=== PATIENT | female | born 1945 | race Caucasian/White ===

== ENCOUNTER → 2017-08-18 | Outpatient (CLI) | payer OTHER | LOC: FIMAGING 14:55 | PROVIDERS: ATTEND Internal Medicine | DX: Z12.31 Encounter for screening mammogram for malignant neoplasm of breast (principal); Z85.3 Personal history of malignant neoplasm of breast ==

== ENCOUNTER → 2017-08-26 | Outpatient (CLI) | payer OTHER | LOC: FIMAGING 11:49 | PROVIDERS: ATTEND Internal Medicine | DX: R92.2 Inconclusive mammogram (principal) ==

== ENCOUNTER → 2017-11-26 | Outpatient (CLI) | payer OTHER ==
[~2017-11-26] MED LIST: LIDOCAINE 1% 300 MG/30 ML SDV ONE
== END ==
LOC: FIMAGING 11:33
PROVIDERS: ATTEND Internal Medicine
PROC: 0G9G3ZX Drainage of Left Thyroid Gland Lobe, Percutaneous Approach, Diagnostic (ICD-10-PCS; principal; 2017-11-26)
DX: E04.2 Nontoxic multinodular goiter (principal); D34 Benign neoplasm of thyroid gland

== ENCOUNTER 2018-05-07 22:24 | Observation (INO) | payer OTHER ==
[2018-05-07] MEDS ORDERED: ONDANSETRON 4 MG/2 ML VIAL ONE (22:38)
[2018-05-07] MEDS ORDERED: KETOROLAC 15 MG/1 ML SDV ONE (22:38)
[2018-05-07] MEDS ORDERED: ONDANSETRON 4 MG/2 ML VIAL IVP ONE (22:38)
[2018-05-07] MEDS ORDERED: NS 1,000 ML IV ONE (22:38)
[2018-05-07] MEDS ORDERED: KETOROLAC 15 MG/1 ML SDV IVP ONE (22:38)
--- NOTE | 2018-05-07 22:41 | EDPHY ---
H & P Stated Complaint: left flank pain, hx Time Seen by Provider: 05/07/18 22:32 HPI/ROS: Chief Complaint: Flank pain HPI: 72-year-old woman with a history of kidney stones presenting with left flank pain which began earlier this evening. She has had blood in urine for the last 2 days. Pain is about an 8/10. Feels similar to her prior kidney stones. No fevers or chills. Some nausea and vomiting. The pain is not radiating. No urinary urgency or frequency. She cannot find a position of comfort. ROS: 10 systems were reviewed and were negative except those elements noted in the HPI. PMH: Kidney stones, UTI Social History: No smoking, no alcohol, no recreational drug use Family History: non-contributory Physical Exam: Gen: Awake, Alert, uncomfortable appearing HEENT: Nose: no rhinorrhea Eyes: PERRLA, EOMI Mouth: Moist mucosa Neck: Supple, no JVD Chest: nontender, lungs clear to auscultation Heart: S1, S2 normal, no murmur Abd: Soft, non-tender, no guarding Back: no CVA tenderness, no midline tenderness Ext: no edema, non-tender Skin: no rash Neuro: CN II-XII intact, Sensation grossly intact, Strength 5/5 in bilateral upper and lower extremities - Personal History Current Tetanus/Diphtheria Vaccine: Unsure Current Tetanus Diphtheria and Acellular Pertussis (TDAP): Unsure - Medical/Surgical History Hx Asthma: No Hx Chronic Respiratory Disease: No Hx Diabetes: No Hx Cardiac Disease: Yes Hx Renal Disease: No Hx Cirrhosis: No Hx Alcoholism: No Hx HIV/AIDS: No Hx Splenectomy or Spleen Trauma: No Other PMH: MEDICAL- KIDNEY STONES, HLD, BREAST CA. SURGICAL- L BREAST LUMPECTOMY, R and LHIP RPLC, back surgery - Social History Smoking Status: Former smoker Constitutional: Initial Vital Signs Temperature (C) 37 C 05/07/18 22:28 Heart Rate 76 05/07/18 22:28 Respiratory Rate 18 05/07/18 22:28 O2 Sat (%) 93 05/07/18 22:28 O2 Delivery Mode Room Air Allergies/Adverse Reactions: oxycodone Allergy (Severe, Verified 10/20/15 15:50) SORES ON SKIN tramadol Allergy (Severe, Verified 10/20/15 15:50) SORES ON SKIN Home Medications: Medication Instructions Recorded Meloxicam [Mobic 15 mg] 15 mg PO HS 03/19/12 Multivitamins [Multivitamin (OTC)] 1 each PO HS 03/19/12 traZODone [traZODONE 50MG (RX)] 50 mg PO HS 03/19/12 Atorvastatin Calcium [Lipitor] 20 mg PO HS 10/20/15 Losartan Potassium [Cozaar] 100 mg PO HS 10/20/15 Oxybutynin Chloride [Ditropan Xl] 10 mg PO HS 10/20/15 Ascorbic Acid [C-1000] 1,000 mg PO HS 10/27/15 Cholecalciferol Vit D3 [Vitamin D] 2,000 units PO HS 10/27/15 Herbals/Supplements -Info Only 1 ea PO DAILY 10/27/15 Cephalexin [Keflex (*)] 500 mg PO Q6H #40 cap 02/16/18 Medical Decision Making - Diagnostics Imaging Results: Imaging Impressions Abdomen/Pelvis CT 05/07/18 22:38 Impression: 1. 6 x 4 mm calculus at the left ureteral pelvic junction is resulting in mild left hydronephrosis. 2. Left nephrolithiasis and parapelvic cysts unchanged. 3. Constipation and sigmoid diverticulosis unchanged. Findings discussed with Emergency Department physician, Zay Han MD at 05/07/2018 23:07. Attention: This CT examination is specifically designed to evaluate patients who are clinically suspected of having acute obstructive uropathy. This examination does not use radiographic contrast, and as such, provides only a limited evaluation of the abdomen, pelvis and retroperitoneum. If there is further clinical suspicion for pathological conditions other than obstructive uropathy, a complete CT evaluation of the abdomen and pelvis utilizing intravenous, oral, and rectal contrast should be considered. ED Course/Re-evaluation: CT scan is positive for a 6 x 4 mm right renal pelvis stone with mild hydro. Patient's pain is significantly improved after IV Toradol. She is comfortable. She has passed a p.o. Challenge. Urinalysis is consistent with urinary tract infection. I have discussed with Dr. Patricia, urology. She is requesting the patient be admitted to the medicine service. She will plan on placing ureteral stent in the morning. I have ordered 1g of ceftriaxone. Case discussed with LISBET Hoffman for Dr Doll, hospitalist. He will admit to their service for further care. - Data Points Laboratory Results: Laboratory Results 05/07/18 22:40 05/07/18 22:40 05/07/18 05/07/18 05/07/18 23:59 22:40 22:40 WBC 10.92 10^3/uL H 10^3/uL (3.80-9.50) RBC 3.99 10^6/uL L 10^6/uL (4.18-5.33) Hgb 12.7 g/dL g/dL (12.6-16.3) Hct 36.2 % L % (38.0-47.0) MCV 90.7 fL fL (81.5-99.8) MCH 31.8 pg pg (27.9-34.1) MCHC 35.1 g/dL g/dL (32.4-36.7) RDW 13.5 % % (11.5-15.2) Plt Count 192 10^3/uL 10^3/uL (150-400) MPV 11.8 fL H fL (8.7-11.7) Neut % (Auto) 80.0 % H % (39.3-74.2) Lymph % (Auto) 12.7 % L % (15.0-45.0) [place] % (Auto) 4.9 % % (4.5-13.0) Eos % (Auto) 1.3 % % (0.6-7.6) Baso % (Auto) 0.4 % % (0.3-1.7) Nucleat RBC Rel Count 0.0 % % (0.0-0.2) Absolute Neuts (auto) 8.74 10^3/uL H 10^3/uL (1.70-6.50) Absolute Lymphs (auto) 1.39 10^3/uL 10^3/uL (1.00-3.00) Absolute Monos (auto) 0.53 10^3/uL 10^3/uL (0.30-0.80) Absolute Eos (auto) 0.14 10^3/uL 10^3/uL (0.03-0.40) Absolute Basos (auto) 0.04 10^3/uL 10^3/uL (0.02-0.10) Absolute Nucleated RBC 0.00 10^3/uL 10^3/uL (0-0.01) Immature Gran % 0.7 % % (0.0-1.1) Immature Gran # 0.08 10^3/uL 10^3/uL (0.00-0.10) Sodium 138 mEq/L mEq/L (135-145) Potassium 4.4 mEq/L mEq/L (3.3-5.0) Chloride 107 mEq/L mEq/L (97-110) Carbon Dioxide 21 mEq/l L mEq/l (22-31) Anion Gap 10 mEq/L mEq/L (8-16) BUN 20 mg/dL mg/dL (7-23) Creatinine 1.0 mg/dL mg/dL (0.6-1.0) Estimated GFR 55 Glucose 135 mg/dL H mg/dL (70-100) Calcium 9.7 mg/dL mg/dL (8.5-10.4) Urine Color YELLOW Urine Appearance HAZY Urine pH 5.0 (5.0-7.5) Ur Specific Hewitt 1.023 (1.002-1.030) Urine Protein 1+ H (NEGATIVE) Urine Ketones NEGATIVE (NEGATIVE) Urine Blood 3+ H (NEGATIVE) Urine Nitrate NEGATIVE (NEGATIVE) Urine Bilirubin NEGATIVE (NEGATIVE) Urine Urobilinogen 2.0 EU H EU (0.2-1.0) Ur Leukocyte Esterase 2+ H (NEGATIVE) Urine RBC 50-182 /hpf H /hpf (0-3) Urine WBC 50-182 /hpf H /hpf (0-3) Ur Epithelial Cells TRACE /lpf /lpf (NONE-1+) Calcium Oxalate Crystal PRESENT /hpf /hpf (NONE-1+) Urine Mucus 1+ /lpf /lpf (NONE-1+) Urine Glucose NEGATIVE (NEGATIVE) Medications Given: Discontinued Medications Sodium Chloride (Ns) 1,000 mls @ 0 mls/hr IV ONCE ONE; Wide Open PRN Reason: Protocol Stop: 05/07/18 22:39 Last Admin: 05/07/18 22:41 Dose: 1,000 mls Ceftriaxone Sodium/Dextrose (Rocephin 1 Gm (Premix)) 50 mls @ 100 mls/hr IV EDNOW ONE PRN Reason: Protocol Stop: 05/08/18 00:54 Last Admin: 10/05/18 00:31 Dose: 50 mls Ketorolac Tromethamine (Toradol) 15 mg IVP EDNOW ONE Stop: 05/07/18 22:39 Last Admin: 05/07/18 22:42 Dose: 15 mg Ondansetron HCl (Zofran) 4 mg IVP EDNOW ONE Stop: 05/07/18 22:39 Last Admin: 05/07/18 22:41 Dose: 4 mg Departure - Departure Disposition: [facility] Acute Clinical Impression: Kidney stone, Urinary tract infection Condition: Fair
[2018-05-07 22:52] LABS: PLATELET COUNT 192 10^3/uL (150-400)
[2018-05-08] MEDS ORDERED: ACETAMINOPHEN 325 MG TAB PO PRN (00:46)
[2018-05-08] MEDS ORDERED: ONDANSETRON DISINTEGRATING 4 MG TAB PO PRN ×2 (00:46→01:45)
[2018-05-08] MEDS ORDERED: ONDANSETRON 4 MG/2 ML VIAL IVP PRN ×2 (00:46→01:45)
[2018-05-08] MEDS ORDERED: NS W/ 20 KCl/L 1,000 ML IV SCH (01:00)
[2018-05-08] MEDS ORDERED: HYDROmorphONE/DILAUDID 1 MG/ML INJ IVP PRN (01:45)
[2018-05-08] MEDS ORDERED: diphenhydrAMINE 25 MG CAP PO PRN (01:45)
[2018-05-08] MEDS ORDERED: LORazepam 0.5 MG TAB PO PRN (01:45)
--- NOTE | 2018-05-08 03:46 | GHP ---
DATE OF ADMISSION: 05/08/2018 REASON FOR ADMISSION: Left hydronephrosis, kidney stone, urinary tract infection. HISTORY OF PRESENT ILLNESS: The patient is a 72-year-old female, who started having abdominal pain a fter the [employer] game this evening. She has a history of kidney stone and felt she was having simila r type pain. She admits she has had some blood in her urine for the past 2 days. No fever, chills, or gross flank pain. No gross significant dysuria. She has had multiple ER visits and prior procedu res for kidney stones. She estimates this has occurred approximately 6 times in the past. She sound s like she has had previous ureteroscopy perhaps 5 years ago. She has otherwise been doing well. ALLERGIES: Listed oxycodone and tramadol. Medication in office list includes codeine, however, she took some Tylenol with codeine at home without difficulty earlier this evening. CURRENT MEDICATIONS: Desonide 0.05% cream p.r.n. rash, losartan 100 mg at bedtime, trazodone 50 mg a t bedtime, atorvastatin 20 mg HS, meloxicam 15 mg p.o. p.r.n. pain, oxybutynin ER 15 mg daily, fish o il. PAST SURGICAL HISTORY: Ureteroscopy, breast cancer surgery, spinal fusion, hip replacement. SOCIAL HISTORY: Nonsmoker, nondrinker. Generally active. Lives independently. FAMILY HISTORY: Father at 47 from heart attack. The patient hypothesized this was triggered fr om pain from kidney stone. Mother at 86 from pneumonia. Siblings: 1 brother with heart diseas e, COPD, peripheral artery disease. REVIEW OF SYSTEMS: GENERAL: Patient denies fever, chills, or gross sense of illness. She denies he adaches or visual changes. No shortness breath, cough, wheeze or congestion. No chest pain or palpi tations. She states she sometimes gets nausea with kidney stones. This has been well treated with o ndansetron in the ER setting. Her last meal was approximately noon. No changes in bowel habits. No gross dysuria, but admitted blood in her urine for the past 2 days. No acute musculoskeletal compla ints. No edema. No new rash. PHYSICAL EXAM: VITAL SIGNS: Blood pressure 161/79, heart rate 82, respiratory rate 16, saturation 9 2% room air, temperature 37. GENERAL: Pleasant, vibrant female sitting comfortably in bed at time o f interview. HEENT: Pupils are symmetric. Oropharynx is somewhat dry. NECK: Without masses. [place] GS: No crackles, wheeze or congestion, dry cough. HEART: Regular rate and rhythm. Distant heart s ounds. No murmur. ABDOMEN: Positive bowel sounds. Soft. Some left upper quadrant tenderness or i rritation with palpation is noted. No gross masses are appreciated. No CVA tenderness. exam is otherwise deferred. SKIN: Warm, dry, intact. Joints without acute erythema or swelling. Periphera l pulses at radial and DP pulses are intact and symmetric. DATABASE: White count minimally elevated at 10.92, hemoglobin 12.7, platelet count normal 192. [place] bolic panel noted for mild elevation of glucose at 135. Creatinine 1.0. Urine positive for blood, l eukocyte esterase, red blood cells and white blood cells. CT left mild hydronephrosis, proximal ston e likely as cause of symptoms. Bladder is decompressed. There is some evidence of constipation. ASSESSMENT AND PLAN: 1. Left hydronephrosis stone with urinary tract infection. Dr. Pelaez has been notified of the kimani zapien. She will be held n.p.o., was given IV fluids. Anticipate ureteroscopy with stone removal and stent placement tomorrow. She has been given ceftriaxone for antibiotic coverage in the ER. This w ill be continued once daily. 2. Hypertension. We will give her the typical 100 mg dose of losartan now. 3. Hyperlipidemia. Give Lipitor 20 mg daily tonight as usual. 4. Insomnia. Continue trazodone. /[id number]/MODL
[2018-05-08] MEDS ORDERED: LR 1,000 ML IV ONE (07:32)
[2018-05-08] MEDS ORDERED: IOPAMIDOL (ISOVUE-M 300) 15 ML VIAL ONE (07:39)
[2018-05-08] MEDS ORDERED: LIDOCAINE 2% JELLY 20 ML (UROJECT) ONE (07:39)
[2018-05-08] MEDS ORDERED: levOFLOXACIN 500 MG/DEXTROSE 100 ML IV ONE (07:53)
--- NOTE | 2018-05-08 07:54 | POSTANESTH ---
Post Anesthetic Evaluation Cardiovascular Status: Normal, Stable Respiratory Status: Normal, Stable Level of Consciousness/Mental Status: Can Participate in Eval, Mildly Sleepy, Arousable Pain Control: Adequate, Prn Tx Ordered Nausea/Vomiting Control: Adequate, Prn Tx Ordered Complications Possibly Related to Anesthesia: None Noted
[2018-05-08] MEDS ORDERED: levOFLOXACIN 500 MG/DEXTROSE/100 ML BAG IV ONE (07:55)
--- NOTE | 2018-05-08 07:56 | PDANEPAE ---
ANE History of Present Illness 72 yo female with L sided nephrolithiasis and hydronephrosis ANE Past Medical History - Cardiovascular History Hx Hypertension: Yes Hx Arrhythmias: No Hx Chest Pain: No Hx Coronary Artery / Peripheral Vascular Disease: No Hx CHF / Valvular Disease: No Hx Palpitations: No Cardiovascular History Comment: HLD - Pulmonary History Hx COPD: No Hx Asthma/Reactive Airway Disease: No Hx Recent Upper Respiratory Infection: No Hx Oxygen in Use at Home: No Hx Sleep Apnea: No Sleep Apnea Screening Result - Last Documented: Positive Pulmonary History Comment: SUSPECTED COLLEEN - Neurologic History Hx Cerebrovascular Accident: No Hx Seizures: No Hx Dementia: No - Endocrine History Hx Diabetes: No Hypothyroid: No Hyperthyroid: No Obesity: moderate - Renal History Hx Renal Disorders: Yes Renal History Comment: NEPHROLITHIASIS. HYDRONEPHROSIS. URINARY INCONTINENCE - Liver History Hx Hepatic Disorders: No - Neurological & Psychiatric Hx Hx Neurological and Psychiatric Disorders: No - Cancer History Hx Cancer: Yes Cancer History Comment: LEFT BREAST DCIS 1996 - maybe a sentinel LN biopsy, no post-chemo - Congenital Disorder History Hx Congenital Disorders: No - GI History Hx Gastrointestinal Disorders: No Gastrointestinal History Comment: BENIGN COLONOSCOPIES - Other Health History Other Health History: OSTEOPENIA. SPINAL STENOSIS S/P FUSION - Chronic Pain History Chronic Pain: Yes - Surgical History Prior Surgeries: LEFT BREAST LUMPECTOMY 1996. R HIP ALFREDITO 2003, HARDWARE. L CARPAL TUNNEL @ [facility]. L4-L5, L5-S1 FUSION 2015 @ [facility] Review of Systems Review of Systems: - Systems Genitourinary: Reports: flank pain, hematuria Muscolosketal: Reports: joint pain ANE Patient History - Allergies Allergies/Adverse Reactions: oxycodone Allergy (Severe, Verified 10/20/15 15:50) SORES ON SKIN tramadol Allergy (Severe, Verified 10/20/15 15:50) SORES ON SKIN - Home Medications Home Medications: Meloxicam [Mobic 15 mg] 15 mg PO HS 03/19/12 [Last Taken 03/17/12] Multivitamins [Multivitamin (OTC)] 1 each PO HS 03/19/12 [Last Taken 03/16/12] traZODone [traZODONE 50MG (RX)] 50 mg PO HS 03/19/12 [Last Taken 03/17/12] Atorvastatin Calcium [Lipitor] 20 mg PO HS 10/20/15 [Last Taken Unknown] Losartan Potassium [Cozaar] 100 mg PO HS 10/20/15 [Last Taken Unknown] Oxybutynin Chloride [Ditropan Xl] 10 mg PO HS 10/20/15 [Last Taken Unknown] Ascorbic Acid [C-1000] 1,000 mg PO HS 10/27/15 [Last Taken Unknown] Cholecalciferol Vit D3 [Vitamin D] 2,000 units PO HS 10/27/15 [Last Taken Unknown] Herbals/Supplements -Info Only 1 ea PO DAILY 10/27/15 [Last Taken Unknown] - NPO status NPO Since - Liquids (Date): 05/07/18 NPO Since - Liquids (Time): 12:00 NPO Since - Solids (Date): 05/07/18 NPO Since - Solids (Time): 12:00 - Anes Hx Anes Hx: post operative nausea and vomiting - Smoking Hx Smoking Status: Former smoker Marijuana use: No - Alcohol Use Alcohol Use: None - Family Anes Hx Family Anes Hx: neg - N/A Family Hx Anesthesia Complications: NO ANE Labs/Vital Signs - Labs Result Diagrams: 05/07/18 22:40 05/07/18 22:40 - Vital Signs Blood Pressure: 164/81 Heart Rate: 67 Respiratory Rate: 18 O2 Sat (%): 94 Height: 160.02 cm Weight: 102.3 kg ANE Physical Exam - Airway Neck exam: decreased ROM Mallampati Score: Class 3 Mouth exam: normal dental/mouth exam - Pulmonary Pulmonary: clear to auscultation - Cardiovascular Cardiovascular: regular rate and rhythym - ASA Status ASA Status: III ANE Anesthesia Plan Anesthesia Plan: GA w LMA
--- NOTE | 2018-05-08 08:06 | PDCONSULT ---
Change Agent Note: C left obs ureteral stone, UTI Requested by: Brooks Han MD ER HPI 72F w hx BrCa 20y ago, bilateral hip replacement, presented to ER w one day acute left flank pain, nausea, blood in urine for 2 days. No fevers or chills. Hx stones, passed on own, no surgery. No other medical issues. Rocephin last night. CT scan personally reviewed - left obs proxomal stone 6mm, 2 other nonobs left renal stones, largest renal stone 9mm. No R nephrolithiasis. ROS: 10 systems were reviewed and were negative except those elements noted in the HPI. PMH: Kidney stones, UTI Social History: No smoking, no alcohol, no recreational drug use Family History: non-contributory PE AFVSS Gen NAD A&O CV regular Lungs Normal effort Abd soft Ext warm Labs reviewed - WBC 10.9 Cr 1 UA - +leuks, +RBC, +WBC, +infection A/P Left obs ureteral stone, other non obs renal stones, UTI. Needs left stent 2/2 infection. Discussed rationale, risks, benefits of stent placement. She understands, questions answered, consent received. Will plan on definitive tx in 1-2 weeks. Will need her DC on appropriate abx and continue abx up through tx of surgery.
[2018-05-08] MEDS ORDERED: PROPOFOL/EMULSION 500 MG/50 ML BOTTLE IV ONE (08:10)
[2018-05-08] MEDS ORDERED: fentaNYL 100 MCG/2 ML INJ ONE (08:10)
[2018-05-08] MEDS ORDERED: DEXAMETHASONE 4 MG/ML VIAL ONE (08:10)
[2018-05-08] MEDS ORDERED: ONDANSETRON 4 MG/2 ML VIAL ONE (08:10)
[2018-05-08] MEDS ORDERED: PROMETHAZINE HCL 25 MG/ML INJ IVP PRN (08:46)
[2018-05-08] MEDS ORDERED: HYDROmorphONE/DILAUDID 2 MG/ML INJ IVP PRN (08:46)
[2018-05-08] MEDS ORDERED: ALBUTEROL 3 ML DEYVIAL IH PRN (08:46)
[2018-05-08] MEDS ORDERED: fentaNYL 100 MCG/2 ML INJ IVP PRN (08:46)
[2018-05-08] MEDS ORDERED: NALOXONE HCL 0.4 MG/ML INJ IVP PRN (08:46)
[2018-05-08] MEDS ORDERED: LR 500 ML IV PRN (08:46)
--- NOTE | 2018-05-08 08:54 | POSTOPPROG ---
Post Op Note Date of Operation: 05/08/18 Surgeon: Felipa Pelaez Anesthesia: LMA Pre-op Diagnosis: left obs nephrolithiasis, UTI Post-op Diagnosis: same Indication: left obs nephrolithiasis, UTI Procedure: cysto, L stent placement, intraoperative fluoro Findings: normal bladder Inf/Abcess present in the surg proc area at time of surgery?: Yes Depth: Organ Space () Complications: None,pt tolerated well
[2018-05-08] MEDS ORDERED: OXYBUTYNIN CHLORIDE 5 MG TAB PO PRN (08:55)
[2018-05-08] MEDS ORDERED: PHENAZOPYRIDINE HCL 200 MG TAB PO PRN (08:56)
[2018-05-08] MEDS ORDERED: TAMSULOSIN HCL 0.4 MG CAP PO SCH (09:00)
[2018-05-08] MEDS ORDERED: LOSARTAN POTASSIUM 50 MG TAB PO SCH (09:00)
[2018-05-08] MEDS ORDERED: SENNOSIDES/DOCUSATE SODIUM TAB PO SCH (09:00)
--- NOTE | 2018-05-08 09:41 | SOAPPROG ---
[facility]ICK[facility] Progress Note Assessment/Plan: Assessment: 72 yo female admitted last night w/ L hydro/UTI/6 mm obstructing stone, now s/p cysto/L ureteral stent w/ Dr Pelaez in PACU doing well, has 2 further stones in addition - will be treated w/ outpt lithotripsy for these in 10 days or so per pt's discussion w/ urology - -s/p stent doing really well, appreciate rapid assistance of urology - pt very pleased. Rec'd rocephin last night, will change to po abx per instructions of urology and will send in rx to [facility] for patient so her brother or neighbor can pick them up when she returns home. Possible d/c this afternoon vs tomorrow am - armando RN. Need to see her ambulating, voiding, taking po's and doing well this afternoon, if so, will d/c home. Otherwise will d/c tomorrow. Will have f/u with Dr Pelaez as outpt. Increased diet to light from NPO. -dispo see above Plan: 05/08/18 09:37 05/08/18 09:41 Subjective: Doing quite well s/p stent, is super pleased w/ help of Dr Pelaez Objective: Vital Signs Temp Pulse Resp BP Pulse Ox 36.4 C 67 21 H 138/94 H 94 05/08/18 09:30 05/08/18 07:56 05/08/18 09:25 05/08/18 09:15 05/08/18 09:25 05/07/18 05/08/18 05/09/18 05:59 05:59 05:59 Intake Total 350 Balance 350 GEN: pleasant female, quite alert despite being in PACU, oriented x 4 Heent: perr, eomi Neck: soft/supple Chest: cta b CV: rrr Abd: soft nt nd Ext: 2+ pedal pulses bilat Neuro: surprisingly alert s/p anesthesia, oriented appropriate Psych: bright affect - Pending Discharge Pending Discharge Within 24 Hours: Yes Pending Discharge Date: 05/09/18 Pending Discharge Time: 11:00 ICD10 Worksheet Patient Problems: Problems Problem Status Onset Kidney stone Acute Urinary tract infection Acute
--- NOTE | 2018-05-08 10:15 | ASMTCMCOM ---
JOHN Note CM Note Notes: Reviewed chart, pt admitted for pain from a kidney stone, she has a hx of this. If pt does well this afternoon, she can go home. Anticipate she will dc home w/support from her brother, CM available for any changes. DC Plan: Independent Date Signed: 05/08/2018 10:14 AM Electronically Signed By:Christal Rainey RN
[2018-05-08 10:33] LABS: PLATELET COUNT 147 10^3/uL (150-400)
--- NOTE | 2018-05-08 11:14 | GOP ---
DATE OF OPERATION: 05/08/2018 SURGEON: Felipa Pelaez MD ANESTHESIOLOGIST: Cassie Sim MD PREOPERATIVE DIAGNOSIS: Left obstructing ureteral stone and urinary tract infection. POSTOPERATIVE DIAGNOSIS: Left obstructing ureteral stone and urinary tract infection. PROCEDURE PERFORMED: Cystoscopy, left ureteral stent placement, intraoperative fluoroscopy. FINDINGS: Normal bladder and good placement of the left stent. Stent was 6-Martiniquais x 24 cm. ESTIMATED BLOOD LOSS: 1 mL. DESCRIPTION OF PROCEDURE: The patient was seen in the preoperative holding area, where the rationale , risks and benefits of the procedure were discussed in detail. The rationale was that she has a UTI with an obstructing stone, necessitating placement of a left stent for drainage of the infected urin e. She understood this. She also understood that we would go back in a week to 2 weeks, after her u rinary tract infection has cleared and we will treat her stone with laser lithotripsy. She also has 2 other nonobstructing left renal stones. The risks include bleeding, infection, pain, injury to the urethra, the bladder, the ureter, need for subsequent procedures if unable to place the stent, and s he understood this and agreed to proceed. She received Rocephin earlier in the night and will receiv e IV Levaquin as preoperative antibiotic right now. She was taken back to the cystoscopy suite, placed on the cystoscopy table in a supine position. Gen eral anesthesia induced without complication. Time-out performed and core measures satisfied includi ng placement of a Lindy Hugger, SCDs and administration of Levaquin antibiotics. She was brought to t he end of the table placed in a dorsal lithotomy position. All pressure points padded. Genitalia dr aped and prepped in the standard surgical fashion with Betadine. A rigid cystoscope easily cannulate d the urethral meatus and advanced atraumatically into the bladder. Peterson cystoscopy performed with a 30 degree lens and there were no lesions, cellules, abnormalities, masses, or concerns in the bladder . The left ureteral orifice was easily identified and in the correct anatomical position. The 0.035 Glidewire was advanced without difficulty in the left collecting system and then a 6-Martiniquais x 24 cm double-J stent was advanced over the wire with fluoroscopic guidance and there was a nice curl in the renal pelvis and a nice curl in the bladder. Her bladder was emptied. Lidocaine jelly placed per u rethra. At this point, the procedure was considered complete. She was awoken from anesthesia and tr ansferred to PACU in good condition. COMPLICATIONS: None. The patient tolerated the procedure well. /[id number]/MODL
[2018-05-08 12:40] VITALS: BP 140/73
[2018-05-08] MEDS ORDERED: traZODone 50 MG TAB PO SCH (21:00)
[2018-05-08] MEDS ORDERED: ATORVASTATIN CALCIUM 20 MG TAB PO SCH (21:00)
--- NOTE | 2018-05-08 21:22 | GDS ---
Patient is a 72-year-old female who came into the ER with a complaint of hematuria for the last 2 day s and left flank pain that was about 8/10. In the ER, she had a CT showing a 6 x 4 mm calculus in le ft ureteropelvic junction with mild left hydronephrosis. Patient was admitted, and the case discusse d with Dr. Pelaez, who would be seeing the patient from Urology, and LISBET Hoffman, admitted th e patient overnight. In the morning, Dr. Pelaez took the patient to the OR, performed a cystoscopy and placed a left ureteral stent with intraoperative fluoroscopy. Patient tolerated the procedure w ell. She was found to have 2 additional nonobstructing left renal stones and then was transferred to the PACU. She was doing well there and was transferred to the floor to increase her diet, make sure she can void, ambulate. Doing okay as far as pain management. After several hours, checked on her. She was doing very well and feeling safe to be discharged home. In addition to her usual medicatio ns, she will be sent home on Pyridium 200 mg p.o. q.8 hours p.r.n., Bactrim DS 1 p.o. twice daily x10 days #20, Flomax 0.4 mg p.o. daily, and ondansetron 4 mg p.o. q.4 hours p.r.n. nausea in addition to usual medications. She will have followup with Dr. Felipa Pelaez in 7-10 days with upcoming lith otripsy. She will follow up with PCP, Dr. Doll, at some point next week. She will call for the a ppointment, and she will call for any questions or current concerns in the meantime. The rest of her medications will be continued including trazodone 50 mg p.o. at bedtime, Ditropan 10 mg p.o. at bedt kassandra p.r.n., multivitamin, meloxicam 15 mg p.o. at bedtime, Cozaar 100 mg p.o. at bedtime, vitamin D 2 000 international units daily, Lipitor 20 mg p.o. at bedtime, vitamin C 1000 mg p.o. at bedtime. Also in hospital, patient received 1 g of Rocephin as well as Levaquin perioperatively, and she will be covered with antibiotics with Bactrim above until she has followup with Dr. Pelaez. /[id number]/MODL
== END 2018-05-08 14:34 | disposition home or self-care (01) ==
LOC: F3E 05-08 02:25
PROVIDERS: ADMIT Internal Medicine; ATTEND Internal Medicine
PROC: 0T778DZ Dilation of Left Ureter with Intraluminal Device, Via Natural or Artificial Opening Endoscopic (ICD-10-PCS; principal; 2018-05-08 08:00)
PROC: BT171ZZ Fluoroscopy of Left Ureter using Low Osmolar Contrast (ICD-10-PCS; principal; 2018-05-08 08:00)
DX: N13.2 Hydronephrosis with renal and ureteral calculous obstruction (principal); N39.0 Urinary tract infection, site not specified; I10 Essential (primary) hypertension; E78.5 Hyperlipidemia, unspecified; G47.00 Insomnia, unspecified; Z87.440 Personal history of urinary (tract) infections; Z87.442 Personal history of urinary calculi; Z85.3 Personal history of malignant neoplasm of breast; Z96.643 Presence of artificial hip joint, bilateral; Z98.1 Arthrodesis status
CPT/HCPCS: 52332; 74176; 76001; 96374; 96375; 99285; C1758; C1769; C2625; G0378; J0696; J1100; J1170; J1885; J1956; J2405; J2704; J3010; Q9967

== ENCOUNTER → 2018-05-22 | Outpatient (CLI) | payer OTHER | LOC: FIMAGING 12:38 | PROVIDERS: ATTEND Specialist | DX: D25.9 Leiomyoma of uterus, unspecified (principal); Z96.0 Presence of urogenital implants ==

== ENCOUNTER 2018-05-28 19:17 | Observation (INO) | payer OTHER ==
[2018-05-28] MEDS ORDERED: KETOROLAC 15 MG/1 ML SDV IVP ONE (19:47)
[2018-05-28] MEDS ORDERED: NS 1,000 ML IV ONE (19:52)
--- NOTE | 2018-05-28 19:52 | EDPHY ---
H & P Stated Complaint: L Flank pain Time Seen by Provider: 05/28/18 19:29 HPI/ROS: CHIEF COMPLAINT: Left flank pain HISTORY OF PRESENT ILLNESS: This is a 72-year-old female with a known history of ureterolithiasis. She was treated for a 6 x 4 left ureteral stone on May 07 with overnight hospitalization, antibiotics for UTI, and stenting on May 08. This past May 25 , she underwent replacement of the [facility] Dr. Balderrama. She had been doing well until mid afternoon today when she again developed left flank pain. This pain has persisted. It is typical of her previous kidney stone pain. She has had nausea but no vomiting. No fever. She does not know whether or not she has been passing stones. She took two tylenol for pain, without relief. REVIEW OF SYSTEMS: A ten system review of systems was performed and is negative with the exception of the items mentioned in the HPI. Past medical history: 1. Ureterolithiasis 2. Breast cancer 3. Hypertension 4. Hyperlipidemia 5. Thyroid nodules 6. Insomnia 7. Low back pain Past surgical history: 1. Breast lumpectomy 2. Left hip arthroplasty 3. Lumbar spine surgery 4. Carpal tunnel release Family history: Father at age 47 of coronary artery disease, mother at age 86 Social history: She lives independently. She does not use tobacco products. No excessive alcohol use. General Appearance: Alert. Vital signs reviewed. Eyes: Pupils equal and round, no conjunctival injection, no discharge. Anicteric. Neck: No lymphadenopathy, supple. Respiratory: Lungs are clear to auscultation; no wheezes, rales, or rhonchi. Cardiovascular: Regular rate and rhythm; no murmur, rub, or gallop. Gastrointestinal: Abdomen is soft and nontender, no masses or organomegaly, bowel sounds normal. Skin: Warm and dry, no rashes on exposed skin, normal color. Back: Nontender to palpation over the thoracolumbar spine. No CVAT. Extremities: No lower extremity edema, no calf tenderness or swelling. Neurological: Alert and oriented. Moving all four extremities easily and equally. Psychiatric: Normal affect. - Personal History Current Tetanus/Diphtheria Vaccine: Unsure Current Tetanus Diphtheria and Acellular Pertussis (TDAP): Unsure - Medical/Surgical History Hx Asthma: No Hx Chronic Respiratory Disease: No Hx Diabetes: No Hx Cardiac Disease: Yes Hx Renal Disease: No Hx Cirrhosis: No Hx Alcoholism: No Hx HIV/AIDS: No Hx Splenectomy or Spleen Trauma: No Other PMH: MEDICAL- KIDNEY STONES, HLD, BREAST CA. SURGICAL- L BREAST LUMPECTOMY, R and LHIP RPLC, back surgery - Social History Smoking Status: Former smoker Constitutional: Initial Vital Signs Temperature (C) 37.2 C 05/28/18 19:21 Heart Rate 78 05/28/18 19:21 Respiratory Rate 16 05/28/18 19:21 Blood Pressure 174/82 H 05/28/18 19:21 O2 Sat (%) 94 05/28/18 19:21 O2 Delivery Mode Room Air Allergies/Adverse Reactions: oxycodone Allergy (Severe, Verified 06/03/18 08:58) SORES ON SKIN tramadol Allergy (Severe, Verified 06/03/18 08:58) SORES ON SKIN Home Medications: Medication Instructions Recorded Meloxicam [Mobic 15 mg] 15 mg PO HS 03/19/12 Multivitamins [Multivitamin (*)] 1 each PO HS 03/19/12 traZODone [traZODONE 50MG (*)] 50 mg PO HS 03/19/12 Atorvastatin Calcium [Lipitor 20 20 mg PO HS 10/20/15 mg (*)] Losartan Potassium [Cozaar] 100 mg PO HS 10/20/15 Oxybutynin Chloride [Ditropan Xl] 10 mg PO HS 10/20/15 Ascorbic Acid [C-1000] 1,000 mg PO HS 10/27/15 Cholecalciferol Vit D3 [Vitamin D3 2,000 units PO HS 10/27/15 (*)] Ondansetron Odt [Zofran Odt 4 mg 4 mg PO Q4HRS PRN 30 Days #30 tab 05/08/18 (*)] Tamsulosin HCl [Flomax 0.4 MG (*)] 0.4 mg PO DAILY 30 Days #30 cap 05/08/18 HYDROmorphone HCL [Dilaudid 2 mg 2 mg PO Q4HRS PRN 7 Days #20 tab 05/30/18 (*)] Amlodipine Besylate 5 mg PO HS 06/03/18 Urogesic-Blue Tablet 1 tab PO QID 10/31/18 Medical Decision Making ED Course/Re-evaluation: 72-year-old female with known history of ureterolithiasis. She is 3 days status post placement of left ureteral stent and lithotripsy with a new onset of left flank pain this afternoon, about 5 hr ago. She has taken 2 Tylenol for this pain. In the emergency department she is given 1 L normal saline IV and Toradol 15 mg IV. KUB does not show calcifications. Stent is visualized and reported to be in good position. She initially had good pain relief with the fluids and IV Toradol. She has been taking Flomax at home. However, her pain resurfaced. She was then given Dilaudid 0.5 mg IV. I spoke with , Urology, who recommended placement of a Valentine catheter to see if this might help with her pain. This was done; however she did not have significant pain relief. She was given a 2nd dose of IV Dilaudid 0.5 mg. Given her continued pain, she is being admitted to her primary care service by LISBET Hoffman. Dr. Asia Doll is her primary care physician. Urology will be consulted in the morning. Differential Diagnosis: Flank pain including but not limited to musculoskeletal causes, kidney stone, ureteral stent malposition, urinary obstruction, pyelonephritis, shingles, and intra-abdominal causes such as diverticulitis and appendicitis. - Data Points Laboratory Results: Laboratory Results 05/28/18 18:41 05/28/18 18:41 Medications Given: Discontinued Medications Amlodipine Besylate (Norvasc) 2.5 mg PO DAILY LEATHA Stop: 11/25/18 08:59 Last Admin: 05/30/18 08:27 Dose: 2.5 mg Ascorbic Acid (Vitamin C) 1,000 mg PO HS LEATHA Stop: 11/25/18 20:59 Last Admin: 05/29/18 22:15 Dose: 1,000 mg Atorvastatin Calcium (Lipitor) 20 mg PO HS LEATHA Stop: 11/25/18 20:59 Last Admin: 05/29/18 22:15 Dose: 20 mg Cholecalciferol (Vitamin D) 2,000 units PO HS LEATHA Stop: 11/25/18 20:59 Last Admin: 05/29/18 22:15 Dose: 2,000 units Hydromorphone HCl (Dilaudid) 0.5 mg IVP EDNOW ONE Stop: 05/28/18 21:54 Last Admin: 05/28/18 22:00 Dose: 0.5 mg Hydromorphone HCl (Dilaudid) 0.2 - 0.4 mg IVP Q4HRS PRN PRN Reason: Pain, Severe Unable to Take PO Stop: 06/08/18 00:29 Last Admin: 05/29/18 14:24 Dose: 0.2 mg Sodium Chloride (Ns) 1,000 mls @ 0 mls/hr IV EDNOW ONE; Wide Open PRN Reason: Protocol Stop: 05/28/18 19:53 Last Admin: 05/28/18 20:02 Dose: 1,000 mls Sodium Chloride (Ns) 1,000 mls @ 100 mls/hr IV CONT LEATHA Stop: 11/25/18 00:29 Last Admin: 05/29/18 16:21 Dose: 1,000 mls Ceftriaxone Sodium/Dextrose (Rocephin 1 Gm (Premix)) 50 mls @ 100 mls/hr IV DAILY LEATHA PRN Reason: Protocol Stop: 06/28/18 08:59 Last Admin: 05/30/18 08:23 Dose: 50 mls Sodium Chloride (Ns) 1,000 mls @ 50 mls/hr IV CONT LEATHA Stop: 11/25/18 16:44 Last Admin: 05/29/18 17:41 Dose: 1,000 mls Ketorolac Tromethamine (Toradol) 15 mg IVP ONCE ONE Stop: 05/28/18 19:48 Last Admin: 05/28/18 20:01 Dose: 15 mg Ketorolac Tromethamine (Toradol) 15 mg IVP Q6HRS PRN PRN Reason: Pain, Moderate Stop: 06/03/18 00:00 Last Admin: 05/30/18 08:19 Dose: 15 mg Lorazepam (Ativan Injection) 1 mg IVP ONCE ONE Stop: 05/29/18 16:38 Last Admin: 05/29/18 17:30 Dose: 1 mg Losartan Potassium (Cozaar) 100 mg PO HS LEATHA Stop: 11/25/18 20:59 Last Admin: 05/29/18 22:15 Dose: 100 mg Miscellaneous Medication (Meloxicam [Mobic 15 Mg]) 15 mg PO HS LEATHA Stop: 11/25/18 20:59 Last Admin: 05/29/18 22:16 Dose: Not Given Ondansetron HCl (Zofran) 4 mg IVP Q4HRS PRN PRN Reason: Nausea/Vomiting, Can't Take PO Stop: 11/25/18 00:29 Last Admin: 05/29/18 17:26 Dose: 4 mg Senna/Docusate Sodium (Senokot-S) 1 - 2 tab PO BID LEATHA PRN Reason: Protocol Stop: 11/25/18 20:59 Last Admin: 05/30/18 08:27 Dose: 1 tab Tamsulosin HCl (Flomax) 0.4 mg PO BID [facility] Stop: 11/25/18 00:44 Last Admin: 05/30/18 08:28 Dose: 0.4 mg Trazodone HCl (Trazodone) 50 mg PO HS [facility] Stop: 11/25/18 20:59 Last Admin: 05/29/18 22:16 Dose: 50 mg Departure - Departure Disposition: [facility] Acute Clinical Impression: Ureterolithiasis Condition: Good
[2018-05-28 20:07] LABS: PLATELET COUNT 200 10^3/uL (150-400)
[2018-05-28] MEDS ORDERED: HYDROmorphONE/DILAUDID 2 MG/ML INJ IVP ONE (21:53)
[2018-05-29] MEDS ORDERED: diphenhydrAMINE 25 MG CAP PO PRN (00:30)
[2018-05-29] MEDS ORDERED: ACETAMINOPHEN 325 MG TAB PO PRN (00:30)
[2018-05-29] MEDS ORDERED: PROMETHAZINE HCL 25 MG/ML INJ IVP PRN (00:30)
[2018-05-29] MEDS ORDERED: LORazepam 0.5 MG TAB PO PRN (00:30)
[2018-05-29] MEDS ORDERED: ONDANSETRON DISINTEGRATING 4 MG TAB PO PRN (00:30)
[2018-05-29] MEDS ORDERED: HYDROmorphONE/DILAUDID 6 MG/30 ML PCA IV PRN (00:33)
[2018-05-29] MEDS ORDERED: NALOXONE HCL 0.4 MG/ML INJ IVP PRN ×2 (00:33→16:44)
[2018-05-29] MEDS: TAMSULOSIN HCL 0.4 MG CAP PO SCH ×3 (01:30→22:15)
[2018-05-29] MEDS: KETOROLAC 15 MG/1 ML SDV IVP PRN ×3 (01:37→14:27)
[2018-05-29] MEDS: HYDROmorphONE/DILAUDID 1 MG/ML INJ IVP PRN ×4 (01:37→14:24)
[2018-05-29] MEDS: NS 1,000 ML IV SCH ×2 (01:38→16:21)
[2018-05-29] MEDS: ONDANSETRON 4 MG/2 ML VIAL IVP PRN ×2 (01:47→17:26)
--- NOTE | 2018-05-29 05:46 | GHP ---
DATE OF ADMISSION: 05/28/2018 REASON FOR ADMISSION: Left-sided flank pain. HISTORY OF PRESENT ILLNESS: The patient is a 72-year-old female, who was admitted to [facility] on May 08, for left-sided flank pain with a finding of a kidney stone which was treated by ureteroscopy with prompt improvement. She was discharged home the next day. She saw Dr. Balderrama Friday of this week. She had had persistent stone findings. A ureteroscopy was performed with a stent exchange. After removing 1 or 2 stones, there was some question of a 3rd stone potentially more proximally in the ureter. This is unclear at this time. She was comfortable Friday, Friday, and all of today until approximately 6 p.m., when she developed rather severe colicky left flank pain which she describes as being exactly like previous kidney stones. She is somewhat nauseous from the pain, which also fits her previous symptomatology. No fever, chills, or dysuria. She had initial improvement with a dose of tramadol in the ER, but this relief lasted an hour or maybe a bit more. She has had Dilaudid which has made her a bit tired and slightly more comfortable. A Valentine catheter was placed at the recommendation of Dr. Felipa Pelaez, but unfortunately, there has been not much of a change in her overall discomfort. Given persistent pain, she will be admitted for observation. The patient is somewhat frustrated by her current situation. PAST MEDICAL HISTORY: Significant for prior nephrolithiasis, hyperlipidemia, breast cancer history, vitamin D deficiency, atherosclerosis, hypertension, urge incontinence, low back pain with prior surgery, osteopenia, thyroid nodules , insomnia. MEDICATIONS: Losartan 100 mg daily, tamsulosin 0.4 mg daily, probably a methylene blue urinary product with some unknown specifics on this, oxybutynin p.r.n. urinary urgency, fish oil, vitamin D. SURGICAL HISTORY: Breast lumpectomy, carpal tunnel surgery, left hip arthroplasty 2006, lumbar spine 2014. SOCIAL HISTORY: Lives independently. Does not smoke. No recent unusual alcohol consumption. FAMILY HISTORY: Father at 47 of CAD, questionable kidney stones. Mother at 86, likely from pneumonia in the penitentiary setting. IMMUNIZATIONS: Up-to-date. ALLERGIES: Oxycodone and tramadol. She has tolerated morphine and hydromorphone well in the past. REVIEW OF SYSTEMS: No headache. No visual changes. No symptoms of upper respiratory infection. Her mouth is dry. She denies shortness of breath, cough , wheeze or congestion. Denies chest pain or palpitations. She has been compliant with her regular medication. She admits to nausea from pain, some reflux/heartburn symptomatology. Left-sided abdominal pain consistent with her kidney stone. No change in bowel patterns. She denies dysuria. SKIN: No acute issues. MUSCULOSKELETAL: No acute issues. PHYSICAL EXAM: VITAL SIGNS: Initial blood pressure 174/82, heart rate 78, respiratory rate 16, saturation 94% on room air, temperature 37.2. GENERAL: Pleasant, somewhat frustrated, animated female resting in bed fairly comfortably upon entering the ER exam bay. Pupils mildly constricted. Mouth is dry. This somewhat affects speech. NECK: Without masses. LUNGS: Clear. No crackles, wheeze or congestion. HEART: Somewhat distant. Regular rate and rhythm. ABDOMEN: Positive bowel sounds. Soft. Some tenderness to deeper palpation in the left lateral abdomen. No current CVA tenderness. SKIN: Warm , dry, intact. BREAST AND PELVIC EXAM: Otherwise deferred. EXTREMITIES: Lower extremity edema trace at most. 2 of 4 DP pulses and radial pulses. SKIN : Without acute rash. JOINTS: Without acute erythema warmth or swelling. DATABASE: White count 8.8, hemoglobin 11.1, platelets 200, mild left shift. Metabolic panel: Creatinine 1.2, glucose 110, otherwise normal. UA positive for leukocytes and red blood cells. ASSESSMENT: Left flank pain: Suspect ongoing kidney stone activity or irritation from stent or potentially underlying infection are issues. Will send urine for culture. Will add ceftriaxone for coverage of possible urinary tract. Will obtain Urology consultation in the morning to better plan how to relieve this patient's symptoms. Stent is easily identifiable in the KUB series. No other pathology was readily identified. /[id number]/MODL MTDD
[2018-05-29 06:18] LABS: PLATELET COUNT 161 10^3/uL (150-400)
--- NOTE | 2018-05-29 08:23 | SOAPPROG ---
RICKIE Progress Note Assessment/Plan: Assessment: Ureterolithiasis Acute CAT reviewed and stent is not in the renal pelvis and recommended PCN Kidney stone Acute Urinary tract infection Acute Plan:CAT scan' to assess kidney and stent is not in renal pelvis, PCN discussed with radiology and IR order placed 05/29/18 08:22 05/29/18 11:18 Objective: Vital Signs Temp Pulse Resp BP Pulse Ox 36.8 C 58 L 18 158/80 H 93 05/29/18 07:47 05/29/18 07:47 05/29/18 07:47 05/29/18 07:47 05/29/18 07:47 Laboratory Results 05/29/18 06:00 05/29/18 06:00 05/28/18 05/29/18 05/30/18 05:59 05:59 05:59 Intake Total 2150 Output Total 250 Balance 1900 ICD10 Worksheet Patient Problems: Problems Problem Status Onset Ureterolithiasis Acute Kidney stone Acute Urinary tract infection Acute
[2018-05-29] MEDS ORDERED: BISACODYL 10 MG SUPP PR PRN (09:32)
[2018-05-29] MEDS ORDERED: LACTULOSE 20 GM/30 ML UDCUP PO PRN (09:32)
[2018-05-29] MEDS ORDERED: POLYETHYLENE GLYCOL 3350 17 GM PKT PO PRN (09:32)
[2018-05-29] MEDS ORDERED: MAGNESIUM HYDROXIDE 30 ML UDCUP PO PRN (09:32)
[2018-05-29] MEDS ORDERED: PHENAZOPYRIDINE HCL 200 MG TAB PO PRN (09:34)
--- NOTE | 2018-05-29 09:44 | SOAPPROG ---
RICKIE Progress Note Assessment/Plan: Assessment: 72 yo female admitted w/ colicky pain w/ h/o nephrolithiasis s/p utereroscope and replacement of stent and lithotripsy earlier this week with known still some stones/fragments remaining who was doing well for a few days but then w/ sudden onset pain again. In ER KUB shows stent appears in good place - spoke w/ Dr Balderrama this am and he would like at CT non contrast. -Fluids, tamsulosin, CT - assessing stones/stent - pain management - hoping pt will pass residual stone fragments and debris w/o issue, she is headed for CT soon and will review and dw urology. She is very reticent to go home due to difficulty controlling pain w/ this current situation. UCx pending, is on ceftriaxone for the time being, alanis in place, pain meds ordered, IVF, will follow. -constipation - will order bowel regimen -htn - bp higher than usual last night w/ pain from nephrolithiasis, better now , cont on bp usual outpt meds -dvt proph - ambulate, hermilo stockings -dispo - will reassess after CT, pt nervous to go home if stones still present Plan: 05/29/18 09:37 Subjective: Bright affect, in good spirits but frustrated w/ nephrolithiasis Objective: Vital Signs Temp Pulse Resp BP Pulse Ox 36.8 C 58 L 18 158/80 H 93 05/29/18 07:47 05/29/18 07:47 05/29/18 07:47 05/29/18 09:06 05/29/18 07:47 Laboratory Results 05/29/18 06:00 05/29/18 06:00 05/28/18 05/29/18 05/30/18 05:59 05:59 05:59 Intake Total 2150 Output Total 250 Balance 1900 Gen: pleasant alert oriented Heent: perr, eomi NecK: soft/supple Chest: cta b CV: rrr nl s1 s2 Abd: soft but mildly ttp 2/2 constipation Ext: 2+ pulses bilat, no pedal edema, wearing scd's Neuro: alert and oriented - Pending Discharge Pending Discharge Within 48 Hours: Yes Pending Discharge Date: 05/31/18 Pending Discharge Time: 11:00 ICD10 Worksheet Patient Problems: Problems Problem Status Onset Kidney stone Acute Urinary tract infection Acute Ureterolithiasis Acute
[2018-05-29] MEDS ORDERED: LORazepam 2 MG/ML INJ IVP ONE (16:37)
[2018-05-29] MEDS ORDERED: GLUCAGON HCL 1 MG VIAL IVP PRN (16:44)
[2018-05-29] MEDS ORDERED: MEPERIDINE 25 MG/ML SYR IVP PRN (16:44)
[2018-05-29] MEDS ORDERED: ALTEPLASE 2 MG VIAL IVP PRN (16:44)
[2018-05-29] MEDS ORDERED: FLUMAZENIL 0.5 MG/5 ML MDV IVP PRN (16:44)
[2018-05-29] MEDS ORDERED: PROTAMINE SULFATE 50 MG/5 ML VIAL IVP PRN (16:44)
[2018-05-29] MEDS ORDERED: MIDAZOLAM 2 MG/2 ML VIAL IVP PRN (16:44)
[2018-05-29] MEDS ORDERED: fentaNYL 100 MCG/2 ML INJ IVP PRN (16:44)
[2018-05-29] MEDS ORDERED: NS 1,000 ML IV SCH (16:45)
[2018-05-29] MEDS ORDERED: IOPAMIDOL (ISOVUE-300) 100 ML BTL ONE ×3 (16:57→18:14)
[2018-05-29] MEDS ORDERED: LIDOCAINE 1% 300 MG/30 ML SDV ONE (16:57)
[2018-05-29] MEDS ORDERED: fentaNYL 100 MCG/2 ML INJ ONE (18:21)
--- NOTE | 2018-05-29 18:41 | PDRADPN ---
Radiology Procedure Note Date of Procedure: 05/29/18 Radiologist: Loraine Saucedo Anesthesia: IV Sedation Pre-op Diagnosis: LT HYDRONEPHROSIS Post-op Diagnosis: SAME Indication: OBSTRUCTED LT KIDNEY Procedure: PERC NEPH TUBE PLACEMENT Finding(s): MODERATE SIZED RENAL PELVIC CYST, MAKING HYDRONEPHROSIS LOOK WORSE THAN IT IS. EXISTING STENT PROXIMALLY IS OUTSIDE OF RENAL PELVIS. Inf/Abcess present in the surg proc area at time of surgery?: No
--- NOTE | 2018-05-29 19:01 | GCON ---
DATE OF CONSULTATION: 05/29/2018 REASON FOR CONSULT: Left flank pain. HISTORY OF PRESENT ILLNESS: This is a pleasant 72-year-old female who presented to the emergency giovani with ongoing left-sided flank pain. She just had a ureteroscopy, laser lithotripsy, stent placemen t with Dr. Balderrama earlier this week. Had been doing well until she presented to the emergency room w ith ongoing left flank pain, minimally controlled with pain medications. PAST MEDICAL HISTORY: Includes nephrolithiasis, hyperlipidemia, breast cancer, vitamin D deficiency, atherosclerosis, hypertension, urge incontinence, low back pain with prior surgery, osteopenia, thyr oid nodules, insomnia. MEDICATIONS: Losartan, tamsulosin, methylene blue, oxybutynin, fish oil, vitamin D. PAST SURGICAL HISTORY: Breast lumpectomy, carpal tunnel surgery, left hip arthroplasty, lumbar spine , ureteroscopy. SOCIAL HISTORY: Lives independently. Does not smoke. FAMILY HISTORY: Possible kidney stone history. ALLERGIES: Oxycodone and tramadol. PHYSICAL EXAMINATION: VITAL SIGNS: Blood pressure 144/69, heart rate 64, respirations 18, O2 93% on room air, temperature 37.1. GENERAL: This is a well-developed, well-nourished female in no acute d istress. HEENT: Normocephalic, atraumatic. Extraocular movements intact. NECK: Supple. No lymph adenopathy. Trachea midline. RESPIRATORY: No accessory respiratory muscle use. CARDIAC: Regular ra te and rhythm. No lower extremity edema. No obvious JVD. GI: Abdomen is obese, but soft, nondiste nded. No hepatosplenomegaly. Nontender to palpation. : No CVA tenderness. Bladder: She does h ave a Valentine catheter in place draining clear urine. INTEGUMENT: No obvious rashes or lesions. MUSCUL OSKELETAL: She is examined while prone but moving upper extremities without difficulty. NEURO: Inga rt and oriented, affect appropriate to situation. LABORATORIES: White blood cell count 7.44, hemoglobin 9.8, hematocrit 29.1. Chemistry: Sodium 139, potassium 4.6, chloride 109, carbon dioxide 21, anion gap 9, BUN 19, creatinine 1.3, glucose 110, ca lcium 9.0. Urinalysis was positive for blood, no nitrites. Preliminary urine culture negative. CT: We did get a CT of her abdomen and pelvis, which shows inflammation in the left renal pelvis, al nasima with a displaced ureteral stent. ASSESSMENT AND PLAN: After discussion with Dr. Parson and Dr. Balderrama, it was decided that the patient would have Interventional Radiology place a percutaneous nephrostomy tube into her left kidney, with removal and possible replacement of stent if appropriate. She also elects to keep the urinary terrance ter in place until the end of her stay, at which point it can be removed prior to discharge per her c onvenience. /[id number]/MODL
[2018-05-29] MEDS ORDERED: LOSARTAN POTASSIUM 50 MG TAB PO SCH (21:00)
[2018-05-29] MEDS ORDERED: Meloxicam [Mobic 15 Mg] PO SCH (21:00)
[2018-05-29] MEDS ORDERED: traZODone 50 MG TAB PO SCH (21:00)
[2018-05-29] MEDS ORDERED: ASCORBIC ACID 500 MG TAB PO SCH (21:00)
[2018-05-29] MEDS ORDERED: ATORVASTATIN CALCIUM 20 MG TAB PO SCH (21:00)
[2018-05-29] MEDS ORDERED: CHOLECALCIFEROL VIT D3 2,000 UNITS TAB/CAP PO SCH (21:00)
[2018-05-29] MEDS: SENNOSIDES/DOCUSATE SODIUM TAB PO SCH (22:15)
[2018-05-30] MEDS: KETOROLAC 15 MG/1 ML SDV IVP PRN (08:19)
[2018-05-30] MEDS: SENNOSIDES/DOCUSATE SODIUM TAB PO SCH (08:27)
[2018-05-30] MEDS: TAMSULOSIN HCL 0.4 MG CAP PO SCH (08:28)
--- NOTE | 2018-05-30 11:44 | SOAPPROG ---
SODEANDRA Progress Note Assessment/Plan: Assessment: Plan: 05/30/18 11:46 nephrolithiasis with obstruction: s/p nephrostomy tube placement, now pain free. Urine cx negative to date. Have spoken with Dr. Balderrama and she is stable to go home from urology perspective. She has f/u appointment in his office in two days for removal of nephrostomy tube, stent. Will remove alanis prior to d/ c. Would like some dilaudid to use just in case. Elevated BP: noted on admission likely due to pain. BP has been normal since then. Dispo: home today with f/u as planned. 05/30/18 11:55 05/30/18 11:57 05/30/18 12:04 05/30/18 12:05 Subjective: No further pain as of last night. Objective: Vital Signs Temp Pulse Resp BP Pulse Ox 37.3 C 68 16 111/67 92 05/30/18 08:00 05/30/18 08:00 05/30/18 08:00 05/30/18 08:27 05/30/18 08:00 Laboratory Results 05/29/18 06:00 05/29/18 06:00 05/29/18 05/30/18 05/31/18 05:59 05:59 05:59 Intake Total 2150 1025 Output Total 250 875 130 Balance 1900 150 -130 General: awake, alert, NAD Lungs: clear bilaterally Cardiovascular: RRR no murmur Abdomen: soft, non-tender Back: dressing in place over nephrostomy tube placement. Bag draining dark red urine Extremities: trace edema ICD10 Worksheet Patient Problems: Problems Problem Status Onset Ureterolithiasis Acute Kidney stone Acute Urinary tract infection Acute
[2018-05-30] MEDS ORDERED: HYDROmorphONE/DILAUDID 2 MG TAB PO PRN (11:59)
[2018-05-30 12:37] VITALS: BP 110/76
--- NOTE | 2018-05-30 13:20 | GDS ---
DISCHARGE DIAGNOSES: Nephrolithiasis, hydronephrosis. CONSULTATIONS: Urology, LISBET Kendall; Interventional Radiology, Dr. Loraine Saucedo. HOSPITAL COURSE: The patient is a 72-year-old woman with a history of nephrolithiasis, hydronephrosi s, and stent placement, who underwent stent exchange, 05/25/2018. She was doing well until the eveni ng of admission when she developed severe left flank pain and came to the emergency department. Plac ement of a Valentine catheter did not relieve her pain, so she was admitted. She was seen by Urology. [facility] CT scan showed that this stent was outside the renal pelvis. Interventional Radiology was con sulted, and a nephrostomy tube was placed by Dr. Saucedo. She also aspirated a moderately large renal cy st, which was obstructing her access. The stent was not removed. The patient's pain resolved, and s he is stable for discharge. She will follow up with Dr. Balderrama on 06/01/2018. She was given a prescription for Dilaudid to use at home if needed for recurrent pain. /[id number]/MODL
[2018-05-30] MEDS ORDERED: LIDOCAINE 1% 300 MG/30 ML SDV ONE (14:33)
--- NOTE | 2018-05-30 17:56 | GDS ---
DISCHARGE DIAGNOSES: 1. Nephrolithiasis. 2. Hydronephrosis. DICTATION ENDED HERE. /[id number]/MODL
[2018-06-03] MEDS ORDERED: IBUPROFEN 200 MG TAB PO PRN (06:00)
== END 2018-05-30 13:00 | disposition home or self-care (01) ==
LOC: FOB 05-29 01:15
PROVIDERS: ADMIT Internal Medicine; ATTEND Internal Medicine
DX: N13.2 Hydronephrosis with renal and ureteral calculous obstruction (principal); T83.122A Displacement of indwelling ureteral stent, initial encounter; N28.1 Cyst of kidney, acquired; E86.0 Dehydration; I10 Essential (primary) hypertension; E78.5 Hyperlipidemia, unspecified; M54.5 Low back pain; Z23 Encounter for immunization; Z87.442 Personal history of urinary calculi; Z09 Encounter for follow-up examination after completed treatment for conditions other than malignant neoplasm; Z80.3 Family history of malignant neoplasm of breast
CPT/HCPCS: 50695; 74018; 74176; 90686; 96361; 96374; 99152; 99285; C1729; C1769; G0378; J0696; J1170; J1885; J2060; J2405; J3010; Q9967

== ENCOUNTER 2018-06-05 08:36 | Day surgery (SDC) | payer OTHER ==
--- NOTE | 2018-06-05 09:05 | PDPROPOC ---
Sedation Plan of Care ASA Classification: ASA 2 Mallampati Score: Class 2 Mallampati Reference Image:
--- NOTE | 2018-06-05 09:06 | PDRADPRE ---
Radiology History & Physical Indication for procedure: other (renal stone) Home medications: Meloxicam [Mobic 15 mg] 15 mg PO HS 03/19/12 [Last Taken 05/06/18] Multivitamins [Multivitamin (*)] 1 each PO HS 03/19/12 [Last Taken 05/06/18] traZODone [traZODONE 50MG (*)] 50 mg PO HS 03/19/12 [Last Taken 05/06/18] Atorvastatin Calcium [Lipitor 20 mg (*)] 20 mg PO HS 10/20/15 [Last Taken ] Losartan Potassium [Cozaar] 100 mg PO HS 10/20/15 [Last Taken 05/06/18] Oxybutynin Chloride [Ditropan Xl] 10 mg PO HS 10/20/15 [Last Taken 05/06/18] Ascorbic Acid [C-1000] 1,000 mg PO 10/27/15 [Last Taken 05/06/18] Cholecalciferol Vit D3 [Vitamin D3 (*)] 2,000 units PO 10/27/15 [Last Taken 05/06/18] Amlodipine Besylate 5 mg PO 06/03/18 [Last Taken Unknown] Urogesic-Blue Tablet 1 tab PO QID 06/03/18 [Last Taken Unknown] Allergies/Adverse Reactions: oxycodone Allergy (Severe, Verified 06/03/18 08:58) SORES ON SKIN tramadol Allergy (Severe, Verified 06/03/18 08:58) SORES ON SKIN Mental status: A&Ox3
[2018-06-05] MEDS ORDERED: ceFAZolin 2 GM/DEXTROSE 100 ML IV ONE ×2 (09:15→09:17)
[2018-06-05] MEDS ORDERED: MEPERIDINE 25 MG/ML SYR IVP PRN (09:17)
[2018-06-05] MEDS ORDERED: fentaNYL 100 MCG/2 ML INJ IVP PRN (09:17)
[2018-06-05] MEDS ORDERED: FLUMAZENIL 0.5 MG/5 ML MDV IVP PRN (09:17)
[2018-06-05] MEDS ORDERED: MIDAZOLAM 2 MG/2 ML VIAL IVP PRN (09:17)
[2018-06-05] MEDS ORDERED: NALOXONE HCL 0.4 MG/ML INJ IVP PRN (09:17)
[2018-06-05] MEDS ORDERED: IOPAMIDOL (ISOVUE-300) 100 ML BTL ONE (09:24)
[2018-06-05] MEDS ORDERED: LIDOCAINE 1% 300 MG/30 ML SDV ONE (09:24)
[2018-06-05] MEDS ORDERED: NS 1,000 ML IV SCH (09:30)
[2018-06-05] MEDS ORDERED: ACETAMINOPHEN 325 MG TAB PO PRN (11:32)
[2018-06-05] MEDS ORDERED: ONDANSETRON 4 MG/2 ML VIAL IVP PRN (11:32)
--- NOTE | 2018-06-05 11:34 | PDRADPN ---
Radiology Procedure Note Date of Procedure: 06/05/18 Radiologist: Alice Ro Anesthesia: IV Sedation Pre-op Diagnosis: hydro Post-op Diagnosis: resolved hydro Procedure: JJ stent placement Finding(s): Stone has passed. JJ Stent 8 Fr x 22 cm placed, neph tube removed Inf/Abcess present in the surg proc area at time of surgery?: No
[2018-06-05 12:52] VITALS: BP 125/60
== END 2018-06-05 12:55 | disposition home or self-care (01) ==
LOC: FIMAGING 08:36
PROVIDERS: ATTEND Specialist
PROC: 0T777DZ Dilation of Left Ureter with Intraluminal Device, Via Natural or Artificial Opening (ICD-10-PCS; principal; 2018-06-05 11:45)
DX: N13.2 Hydronephrosis with renal and ureteral calculous obstruction (principal)
CPT/HCPCS: 50693; 99152; 99153; C1729; C1769; C1892; J0690; J1644; J2250; J2310; J3010; Q9967

== ENCOUNTER 2018-07-04 17:04 | Observation (INO) | payer OTHER ==
[2018-07-04] MEDS ORDERED: KETOROLAC 15 MG/1 ML SDV ONE (17:50)
[2018-07-04] MEDS ORDERED: KETOROLAC 30 MG/1 ML SDV IVP ONE (17:52)
[2018-07-04] MEDS ORDERED: NS 1,000 ML IV ONE (17:55)
[2018-07-04 18:20] LABS: PLATELET COUNT 143 10^3/uL (150-400)
--- NOTE | 2018-07-04 18:54 | EDPHY ---
H & P Stated Complaint: HX KIDNEY STONES LSIDED FLANK ABD PAIN Time Seen by Provider: 07/04/18 18:52 HPI/ROS: HPI: This is a 72-year-old female who presents with Chief Complaint: HX KIDNEY STONES LSIDED FLANK ABD PAIN Location: Left flank Quality: pain Duration: Started at 9:00 a.m. This morning Signs and Symptoms: no fever, no nausea, no vomiting, no hematemesis, no blood in stool, no abdominal bloating, no diarrhea, no back pain, no urinary symptoms , no vaginal bleeding/discharge, no indigestion, no chest pain, no shortness of breath Timing: Acute, constant Severity: Moderate to severe Context: Patient presents with sudden onset this morning around 9:00 a.m. Of left flank pain that is nonradiating in nature and constant. She reports that she has been drinking lemon juice and walking without any relief of pain. She is concerned that she has another kidney stone. She denies nausea, vomiting, fever, diarrhea. She reports that she has not eaten any food today. Last urination was upon arrival to the emergency room. Patient has a history nephrolithiasis, hydronephrosis and stent placement who underwent stent exchange on 05/25/2018. She then developed severe left flank pain, Valentine catheter placed which did not relieve her pain so she was admitted. Follow-up CT scan showed that the stent was outside the renal pelvis. Interventional Radiology was consulted and nephrostomy tube was placed by Dr. Saucedo. She also aspirated moderately large renal cyst which was obstructing her access. This stent was subsequently removed. Modifying Factors: See above Comment: ROS: A comprehensive 10 system review of systems is otherwise negative aside from elements mentioned in the history of present illness. MEDICAL/SURGICAL/SOCIAL HISTORY: Medical history: KIDNEY STONES, HLD, BREAST CA Surgical history: L BREAST LUMPECTOMY, R and LHIP RPLC, back surgery Social history: Former smoker. Denies drug use. Family history noncontributory. CONSTITUTIONAL: Extremely well-appearing polite and cooperative elderly white female, awake and alert, no obvious distress HEENT: Atraumatic and normocephalic, PERRL, EOMI. Nares patent; no rhinorrhea; no nasal mucosal edema. Tympanic membranes clear. Oropharynx clear, no exudate and moist pink mucosa. Airway patent. No lymphadenopathy. No meningismus. Cardiovascular: Normal S1/S2, regular rate, regular rhythm, without murmur rub or gallop. PULMONARY/CHEST: Symmetrical and nontender. Clear to auscultation bilaterally. Good air movement. No accessory muscle usage. ABDOMEN: Soft, nondistended, nontender, no rebound, no guarding, no peritoneal signs, no masses or organomegaly. No CVAT. EXTREMITIES: 2/2 pulses, strength 5/5, no deformities, no clubbing, no cyanosis or edema. NEUROLOGICAL: no focal neuro deficits. GCS 15. SKIN: Warm and dry, no erythema. no rash. Good capillary refill. Source: Patient Exam Limitations: No limitations - Personal History Current Tetanus Diphtheria and Acellular Pertussis (TDAP): No - Medical/Surgical History Hx Asthma: No Hx Chronic Respiratory Disease: No Hx Diabetes: No Hx Cardiac Disease: No Hx Renal Disease: No Hx Cirrhosis: No Hx Alcoholism: No Hx HIV/AIDS: No Hx Splenectomy or Spleen Trauma: No Other PMH: MEDICAL- KIDNEY STONES, HLD, BREAST CA. SURGICAL- L BREAST LUMPECTOMY, R and LHIP RPLC, back surgery - Social History Smoking Status: Former smoker Constitutional: Initial Vital Signs Temperature (C) 36.7 C 07/04/18 17:16 Heart Rate 90 07/04/18 17:16 Respiratory Rate 18 07/04/18 17:16 Blood Pressure 138/93 H 07/04/18 17:16 O2 Sat (%) 93 07/04/18 17:16 O2 Delivery Mode Room Air Allergies/Adverse Reactions: oxycodone Allergy (Severe, Verified 07/04/18 17:14) SORES ON SKIN tramadol Allergy (Severe, Verified 07/04/18 17:14) SORES ON SKIN Home Medications: Medication Instructions Recorded Meloxicam [Mobic 15 mg] 15 mg PO HS 03/19/12 Multivitamins [Multivitamin (*)] 1 each PO HS 03/19/12 traZODone [traZODONE 50MG (*)] 50 mg PO HS 03/19/12 Atorvastatin Calcium [Lipitor 20 20 mg PO HS 10/20/15 mg (*)] Losartan Potassium [Cozaar] 100 mg PO HS 10/20/15 Oxybutynin Chloride [Ditropan Xl] 10 mg PO HS 10/20/15 Ascorbic Acid [C-1000] 1,000 mg PO HS 10/27/15 Cholecalciferol Vit D3 [Vitamin D3 2,000 units PO HS 10/27/15 (*)] Ondansetron Odt [Zofran Odt 4 mg 4 mg PO Q4HRS PRN 30 Days #30 tab 05/08/18 (*)] Tamsulosin HCl [Flomax 0.4 MG (*)] 0.4 mg PO DAILY 30 Days #30 cap 05/08/18 HYDROmorphone HCL [Dilaudid 2 mg 2 mg PO Q4HRS PRN 7 Days #20 tab 05/30/18 (*)] Amlodipine Besylate 5 mg PO HS 06/03/18 Urogesic-Blue Tablet 1 tab PO QID 06/03/18 Medical Decision Making - Diagnostics Imaging Results: Imaging Impressions Abdomen/Pelvis CT 07/04/18 19:10 Impression: 1. Recurrent moderate left hydronephrosis due to 7 x 6 mm calculus in the proximal left ureter. 2. Normal right upper urinary tract. 3. Constipation. No acute bowel obstruction or ileus. Findings discussed with the emergency Department physician administrative library assistant, Ramonita Gil PA-C on July 04, 2018 at 2021 hours. Attention: This CT examination is specifically designed to evaluate patients who are clinically suspected of having acute obstructive uropathy. This examination does not use radiographic contrast, and as such, provides only a limited evaluation of the abdomen, pelvis, and retroperitoneum. If there is further clinical suspicion for pathological conditions other than obstructive uropathy, a complete CT evaluation of the abdomen and pelvis utilizing intravenous, oral, and rectal contrast should be considered. ED Course/Re-evaluation: Vital signs reviewed and stable upon arrival. No systemic signs. IV access and laboratory studies along with urinalysis ordered Given 1 L normal saline and IV Toradol 30 mg Labs reviewed and show creatinine 1.2 and urinalysis shows RBC but no signs of infection CT abdomen and pelvis scan without contrast ordered and per Radiology, Dr. Auguste, moderate hydronephrosis with 6 x 7 mm stone in the left proximal ureter when compared to the CT scan in May. There is no stent today. 2028: ED decision to consult for admission for complicated urological patient with recurrence of nephrolithiasis with moderate hydronephrosis. Spoke with Urology, Dr. Batista, who kindly agrees to consult on patient and Dr. Mccray, hospitalist, who kindly agrees to admit patient This patient was seen under the supervision of my secondary supervising physician. I evaluated care for this patient independently. Discussed this patient with Dr. Trinh who did not see the patient. Differential Diagnosis: Flank pain including but not limited to musculoskeletal causes, kidney stone, pyelonephritis, shingles, and intra-abdominal causes such as diverticulitis and appendicitis. - Data Points Laboratory Results: Laboratory Results 07/04/18 17:50 07/04/18 17:50 07/04/18 07/04/18 07/04/18 17:50 17:50 17:50 WBC 9.16 10^3/uL 10^3/uL (3.80-9.50) RBC 3.84 10^6/uL L 10^6/uL (4.18-5.33) Hgb 12.0 g/dL L g/dL (12.6-16.3) Hct 35.1 % L % (38.0-47.0) MCV 91.4 fL fL (81.5-99.8) MCH 31.3 pg pg (27.9-34.1) MCHC 34.2 g/dL g/dL (32.4-36.7) RDW 13.8 % % (11.5-15.2) Plt Count 143 10^3/uL L 10^3/uL (150-400) MPV 12.0 fL H fL (8.7-11.7) Neut % (Auto) 90.4 % H % (39.3-74.2) Lymph % (Auto) 4.7 % L % (15.0-45.0) [place] % (Auto) 4.3 % L % (4.5-13.0) Eos % (Auto) 0.0 % L % (0.6-7.6) Baso % (Auto) 0.1 % L % (0.3-1.7) Nucleat RBC Rel Count 0.0 % % (0.0-0.2) Absolute Neuts (auto) 8.28 10^3/uL H 10^3/uL (1.70-6.50) Absolute Lymphs (auto) 0.43 10^3/uL L 10^3/uL (1.00-3.00) Absolute Monos (auto) 0.39 10^3/uL 10^3/uL (0.30-0.80) Absolute Eos (auto) 0.00 10^3/uL L 10^3/uL (0.03-0.40) Absolute Basos (auto) 0.01 10^3/uL L 10^3/uL (0.02-0.10) Absolute Nucleated RBC 0.00 10^3/uL 10^3/uL (0-0.01) Immature Gran % 0.5 % % (0.0-1.1) Immature Gran # 0.05 10^3/uL 10^3/uL (0.00-0.10) RBC/WBC/PLT Morphology TNP Platelet Estimate TNP Sodium 138 mEq/L mEq/L (135-145) Potassium 4.2 mEq/L mEq/L (3.3-5.0) Chloride 106 mEq/L mEq/L (97-110) Carbon Dioxide 23 mEq/l mEq/l (22-31) Anion Gap 9 mEq/L mEq/L (6-14) BUN 17 mg/dL mg/dL (7-23) Creatinine 1.2 mg/dL H mg/dL (0.6-1.0) Estimated GFR 44 Glucose 125 mg/dL H mg/dL (70-100) Calcium 10.1 mg/dL mg/dL (8.5-10.4) Urine Color PALE YELLOW Urine Appearance CLEAR Urine pH 6.0 (5.0-7.5) Ur Specific [place] 1.013 (1.002-1.030) Urine Protein NEGATIVE (NEGATIVE) Urine Ketones 1+ H (NEGATIVE) Urine Blood NEGATIVE (NEGATIVE) Urine Nitrate NEGATIVE (NEGATIVE) Urine Bilirubin NEGATIVE (NEGATIVE) Urine Urobilinogen NEGATIVE EU EU (0.2-1.0) Ur Leukocyte Esterase 1+ H (NEGATIVE) Urine RBC 5-10 /hpf H /hpf (0-3) Urine WBC 5-10 /hpf H /hpf (0-3) Ur Epithelial Cells TRACE /lpf /lpf (NONE-1+) Urine Mucus TRACE /lpf /lpf (NONE-1+) Urine Glucose NEGATIVE (NEGATIVE) Medications Given: Discontinued Medications Sodium Chloride (Ns) 1,000 mls @ 3,000 mls/hr IV ONCE ONE Stop: 07/04/18 18:14 Last Admin: 07/04/18 17:55 Dose: 1,000 mls Ketorolac Tromethamine (Toradol) 30 mg IVP EDNOW ONE Stop: 07/04/18 17:53 Last Admin: 07/04/18 17:54 Dose: 30 mg Departure - Departure Disposition: [facility] Inpatient Acute Clinical Impression: Ureterolithiasis, Hydronephrosis due to obstruction of ureter Condition: Fair
--- NOTE | 2018-07-04 22:10 | PDCONSULT ---
Electronic Bench Technician Note: Full consult to follow. Recurrent proximal left stone, ? stricture given location and recurrence after stent removal 2 weeks ago. If remains symptomatic recommend cysto, ureteroscopy and attempted stone removal/stent placement. Discussed with RN. Will discuss further with pt in AM. NPO after MN.
[2018-07-04] MEDS ORDERED: D5W 1/4 NS 1,000 ML IV SCH (22:30)
[2018-07-04] MEDS ORDERED: OXYBUTYNIN 5 MG EXT REL TAB PO SCH (22:30)
[2018-07-04] MEDS: KETOROLAC 15 MG/1 ML SDV IVP SCH (23:14)
[2018-07-05] MEDS: D5W 1/4 NS W/ 20 KCl/L 1,000 ML IV SCH ×2 (00:04→06:10)
--- NOTE | 2018-07-05 00:17 | GHP ---
DATE OF ADMISSION: 07/04/2018 REASON FOR ADMISSION: Left kidney stone. HISTORY: The patient is a 72-year-old female who presents with recurrent left kidney stone. She has undergone extensive problematic history of kidney stones in the recent past. She developed pain very reminiscent of her kidney stones this morning. She has been drinking lots of fluid and lemon water, taking Dilaudid with only minimal benefit. She presented to the emergency room for evaluation. A CT scan showed a stone in her proximal left ureter measuring 6 x 7 mm in size. She was given ketorolac in the emergency room with excellent relief of her pain. She is being admitted for further evaluation and treatment. PAST MEDICAL HISTORY: Significant for a coronary artery calcium score over 200 ; however, her calcium plaque burden progressed only 9% last year. She has had kidney stones dating back to 2011. Breast cancer 15 years ago, hypertension, insomnia, recurrent nephrolithiasis, osteopenia, and atherosclerosis. CURRENT MEDICATIONS: Oxybutynin 1 tablet in the morning for a leaky bladder, meloxicam 15 mg daily, atorvastatin 20 mg daily, tamezapam_ 50 mg at bedtime. Losartan 100 mg daily, vitamin D 2000 international units daily, fish oil 1000 mg daily, Flomax 0.4 mg daily. REVIEW OF SYSTEMS: She has been doing well except for her recent abdominal pain from her kidney stones. She denies chest pain, palpitations, shortness of breath, cough, or congestion. ALLERGIES: To hydrocodone, codeine, oxycodone and tramadol, although she is able to take Dilaudid. PHYSICAL EXAM: GENERAL: Reveals a 72-year-old female, lying in bed in no obvious distress. VITAL SIGNS: Blood pressure 130/56, pulse 61 and regular, respirations 18, oxygen 93% on room air, temperature is 98.4. HEENT: Pupils equal and react to light. LUNGS: Reveal some mild, more coarse breath sounds, which seems to clear after coughing. HEART: Regular rate and rhythm without obvious murmur. ABDOMEN: Nontender. Bowel sounds were normal. She was in no distress. She has no edema in her legs. IMPRESSION: Left kidney stone. PLAN: We will place on IV fluids. Urology consultation has been obtained. Consideration for surgical intervention in the morning if she is not passing the stone spontaneously. We will hold her n.p.o. after midnight for possible surgery tomorrow, and we will strain her urine tonight. We will also check a KUB and consider a noncontrast CT scan in the morning to further evaluate the location of the stone. /[id number]/MODL MTDD
[2018-07-05] MEDS: HYDROmorphONE/DILAUDID 2 MG TAB PO PRN ×2 (02:03→06:12)
[2018-07-05] MEDS: KETOROLAC 15 MG/1 ML SDV IVP SCH ×2 (05:25→14:14)
[2018-07-05] MEDS ORDERED: NALOXONE HCL 0.4 MG/ML INJ IVP PRN (09:11)
[2018-07-05] MEDS ORDERED: ONDANSETRON 4 MG/2 ML VIAL IVP PRN (09:11)
[2018-07-05] MEDS ORDERED: DEXAMETHASONE 4 MG/ML VIAL IVP PRN (09:11)
[2018-07-05] MEDS ORDERED: ALBUTEROL 3 ML DEYVIAL IH PRN (09:11)
[2018-07-05] MEDS ORDERED: HYDROmorphONE/DILAUDID 2 MG/ML INJ IVP PRN (09:11)
[2018-07-05] MEDS ORDERED: fentaNYL 100 MCG/2 ML INJ IVP PRN (09:11)
--- NOTE | 2018-07-05 09:11 | PDANEPAE ---
ANE History of Present Illness here for L ureteroscopy ANE Past Medical History - Cardiovascular History Hx Hypertension: Yes Hx Arrhythmias: No Hx Chest Pain: No Hx Coronary Artery / Peripheral Vascular Disease: No Hx CHF / Valvular Disease: No Hx Palpitations: No Cardiovascular History Comment: HLD - Pulmonary History Hx COPD: No Hx Asthma/Reactive Airway Disease: No Hx Recent Upper Respiratory Infection: No Hx Oxygen in Use at Home: No Hx Sleep Apnea: No Sleep Apnea Screening Result - Last Documented: Positive Pulmonary History Comment: SUSPECTED COLLEEN - Neurologic History Hx Cerebrovascular Accident: No Hx Seizures: No Hx Dementia: No - Endocrine History Hx Diabetes: No - Renal History Hx Renal Disorders: Yes Renal History Comment: NEPHROLITHIASIS. HYDRONEPHROSIS. URINARY INCONTINENCE. KIDNEY STONES - Liver History Hx Hepatic Disorders: No - Neurological & Psychiatric Hx Hx Neurological and Psychiatric Disorders: No - Cancer History Hx Cancer: Yes Cancer History Comment: LEFT BREAST DCIS 1996 - maybe a sentinel LN biopsy, no post-chemo - Congenital Disorder History Hx Congenital Disorders: No - GI History Hx Gastrointestinal Disorders: No Gastrointestinal History Comment: BENIGN COLONOSCOPIES - Other Health History Other Health History: OSTEOPENIA. SPINAL STENOSIS S/P FUSION - Chronic Pain History Chronic Pain: Yes (kidney stones on and off) - Surgical History Prior Surgeries: LEFT BREAST LUMPECTOMY 1996. R HIP AL[place]O 2002, [place]. L CARPAL TUNNEL @ [facility] 2002. L4-L5, L5-S1 FUSION 2014 @ [facility], HIP [place] @ [facility] 2016 ANE Review of Systems Review of Systems: - Exercise capacity Exercise capacity: >=4 METS ANE Patient History - Allergies Allergies/Adverse Reactions: oxycodone Allergy (Severe, Verified 07/04/18 17:14) SORES ON SKIN tramadol Allergy (Severe, Verified 07/04/18 17:14) SORES ON SKIN - Home Medications Home medications: home medication list seen and reviewed Home Medications: Meloxicam [Mobic 15 mg] 15 mg PO HS 03/19/12 [Last Taken 07/03/18] traZODone [traZODONE 50MG (*)] 50 mg PO HS 03/19/12 [Last Taken 07/03/18] Atorvastatin Calcium [Lipitor 20 mg (*)] 20 mg PO HS 10/20/15 [Last Taken ] Losartan Potassium [Cozaar] 100 mg PO HS 10/20/15 [Last Taken 07/03/18] Oxybutynin Chloride [Ditropan Xl] 10 mg PO HS 10/20/15 [Last Taken 07/03/18] amLODIPine BESYLATE [Amlodipine Besylate] 5 mg PO HS 06/03/18 [Last Taken ] Tamsulosin HCl [Flomax 0.4 MG (*)] 0.4 mg PO HS 07/04/18 [Last Taken 07/03/18] - NPO status NPO Status: no food or drink >8 hours NPO Since - Liquids (Date): 07/04/18 NPO Since - Liquids (Time): 23:59 NPO Since - Solids (Date): 07/04/18 NPO Since - Solids (Time): 23:59 - Smoking Hx Smoking Status: Former smoker - Family Anes Hx Family Hx Anesthesia Complications: NO ANE Labs/Vital Signs - Labs Result Diagrams: 07/04/18 17:50 07/04/18 17:50 - Vital Signs Vital Signs: reviewed preoperatively; see RN documention for details Blood Pressure: 143/78 Heart Rate: 68 Respiratory Rate: 18 O2 Sat (%): 93 Height: 162.56 cm Weight: 94.801 kg ANE Physical Exam - Airway Neck exam: FROM Mallampati Score: Class 1 - Pulmonary Pulmonary: no respiratory distress - Cardiovascular Cardiovascular: regular rate and rhythym - ASA Status ASA Status: II ANE Anesthesia Plan Anesthesia Plan: GA w LMA
[2018-07-05] MEDS ORDERED: IOPAMIDOL (ISOVUE-300) 150 ML BTL ONE (09:17)
[2018-07-05] MEDS ORDERED: PROPOFOL/EMULSION 500 MG/50 ML BOTTLE IV ONE (09:37)
[2018-07-05] MEDS ORDERED: fentaNYL 100 MCG/2 ML INJ ONE ×2 (09:39→10:59)
[2018-07-05] MEDS ORDERED: CEFAZOLIN 2 GM/DEXTROSE/100 ML BAG IV ONE (09:43)
[2018-07-05] MEDS ORDERED: ceFAZolin 2 GM in NS 100 ML IV ONE (09:44)
--- NOTE | 2018-07-05 09:48 | PDGENHP ---
History and Physical - Chief Complaint Left flank pain - History of Present Illness 72 y/o known to Dr. Balderrama with recurrent left proximal ureteral obstruction. Left hydro. Left flank pain. Afebrile. Denies nausea or vomiting currently. No gross hematuria. Had recent ureteroscopy and stent placement followed by antegrade stent placement and removal about 2 weeks ago History Information - Allergies/Home Medication List Allergies/Adverse Reactions: oxycodone Allergy (Severe, Verified 07/04/18 17:14) SORES ON SKIN tramadol Allergy (Severe, Verified 07/04/18 17:14) SORES ON SKIN Home Medications: Meloxicam [Mobic 15 mg] 15 mg PO HS 03/19/12 [Last Taken 07/03/18] traZODone [traZODONE 50MG (*)] 50 mg PO HS 03/19/12 [Last Taken 07/03/18] Atorvastatin Calcium [Lipitor 20 mg (*)] 20 mg PO HS 10/20/15 [Last Taken ] Losartan Potassium [Cozaar] 100 mg PO HS 10/20/15 [Last Taken 07/03/18] Oxybutynin Chloride [Ditropan Xl] 10 mg PO HS 10/20/15 [Last Taken 07/03/18] amLODIPine BESYLATE [Amlodipine Besylate] 5 mg PO HS 06/03/18 [Last Taken ] Tamsulosin HCl [Flomax 0.4 MG (*)] 0.4 mg PO HS 07/04/18 [Last Taken 07/03/18] I have personally reviewed and updated: family history, medical history, social history, surgical history - Social History Smoking Status: Former smoker Review of Systems Review of Systems: ROS: 10pt was reviewed & negative except for what was stated in HPI & below Physical Exam Physical Exam: Temp Pulse Resp BP Pulse Ox 37.0 C 68 18 143/78 H 93 07/05/18 09:27 07/05/18 09:27 07/05/18 09:27 07/05/18 09:27 07/05/18 09:27 Constitutional: no apparent distress, appears nourished Eyes: anicteric sclera Cardiovascular: regular rate and rhythym Respiratory: no respiratory distress Gastrointestinal: soft, non-tender abdomen, other (obese) Genitourinary: no bladder fullness Skin: normal color Neurologic: AAOx3 Psychiatric: interacting appropriately Lab Data & Imaging Review 07/04/18 17:50 07/04/18 17:50 WBC 9.16 10^3/uL (3.80-9.50) 07/04/18 17:50 RBC 3.84 10^6/uL (4.18-5.33) L 07/04/18 17:50 Hgb 12.0 g/dL (12.6-16.3) L 07/04/18 17:50 Hct 35.1 % (38.0-47.0) L 07/04/18 17:50 MCV 91.4 fL (81.5-99.8) 07/04/18 17:50 MCH 31.3 pg (27.9-34.1) 07/04/18 17:50 MCHC 34.2 g/dL (32.4-36.7) 07/04/18 17:50 RDW 13.8 % (11.5-15.2) 07/04/18 17:50 Plt Count 143 10^3/uL (150-400) L 07/04/18 17:50 MPV 12.0 fL (8.7-11.7) H 07/04/18 17:50 Neut % (Auto) 90.4 % (39.3-74.2) H 07/04/18 17:50 Lymph % (Auto) 4.7 % (15.0-45.0) L 07/04/18 17:50 [place] % (Auto) 4.3 % (4.5-13.0) L 07/04/18 17:50 Eos % (Auto) 0.0 % (0.6-7.6) L 07/04/18 17:50 Baso % (Auto) 0.1 % (0.3-1.7) L 07/04/18 17:50 Nucleat RBC Rel Count 0.0 % (0.0-0.2) 07/04/18 17:50 Absolute Neuts (auto) 8.28 10^3/uL (1.70-6.50) H 07/04/18 17:50 Absolute Lymphs (auto) 0.43 10^3/uL (1.00-3.00) L 07/04/18 17:50 Absolute Monos (auto) 0.39 10^3/uL (0.30-0.80) 07/04/18 17:50 Absolute Eos (auto) 0.00 10^3/uL (0.03-0.40) L 07/04/18 17:50 Absolute Basos (auto) 0.01 10^3/uL (0.02-0.10) L 07/04/18 17:50 Absolute Nucleated RBC 0.00 10^3/uL (0-0.01) 07/04/18 17:50 Immature Gran % 0.5 % (0.0-1.1) 07/04/18 17:50 Immature Gran # 0.05 10^3/uL (0.00-0.10) 07/04/18 17:50 RBC/WBC/PLT Morphology TNP 07/04/18 17:50 Platelet Estimate TNP 07/04/18 17:50 Sodium 138 mEq/L (135-145) 07/04/18 17:50 Potassium 4.2 mEq/L (3.3-5.0) 07/04/18 17:50 Chloride 106 mEq/L (97-110) 07/04/18 17:50 Carbon Dioxide 23 mEq/l (22-31) 07/04/18 17:50 Anion Gap 9 mEq/L (6-14) 07/04/18 17:50 BUN 17 mg/dL (7-23) 07/04/18 17:50 Creatinine 1.2 mg/dL (0.6-1.0) H 07/04/18 17:50 Estimated GFR 44 07/04/18 17:50 Glucose 125 mg/dL (70-100) H 07/04/18 17:50 Calcium 10.1 mg/dL (8.5-10.4) 07/04/18 17:50 Urine Color PALE YELLOW 07/04/18 17:50 Urine Appearance CLEAR 07/04/18 17:50 Urine pH 6.0 (5.0-7.5) 07/04/18 17:50 Ur Specific [place] 1.013 (1.002-1.030) 07/04/18 17:50 Urine Protein NEGATIVE (NEGATIVE) 07/04/18 17:50 Urine Ketones 1+ (NEGATIVE) H 07/04/18 17:50 Urine Blood NEGATIVE (NEGATIVE) 07/04/18 17:50 Urine Nitrate NEGATIVE (NEGATIVE) 07/04/18 17:50 Urine Bilirubin NEGATIVE (NEGATIVE) 07/04/18 17:50 Urine Urobilinogen NEGATIVE EU (0.2-1.0) 07/04/18 17:50 Ur Leukocyte Esterase 1+ (NEGATIVE) H 07/04/18 17:50 Urine RBC 5-10 /hpf (0-3) H 07/04/18 17:50 Urine WBC 5-10 /hpf (0-3) H 07/04/18 17:50 Ur Epithelial Cells TRACE /lpf (NONE-1+) 07/04/18 17:50 Urine Mucus TRACE /lpf (NONE-1+) 07/04/18 17:50 Urine Glucose NEGATIVE (NEGATIVE) 07/04/18 17:50 Assessment & Plan Assessment: Hydronephrosis due to obstruction of ureter (Acute) Ureterolithiasis (Acute) Plan: plan for left ureteroscopy laser and stent. Extensive discussion of risks, benefits, and alternatives including that I may not be able to get to the stone or remove all of the stone fragments. Discussed that scar tissue may be present and prevent stone removal or stent placement. Discussed the possible need for additional intervention including nephrostomy tube. explained the possibility of stent related symptoms and need for removal. She provided informed consent
[2018-07-05] MEDS ORDERED: ceFAZolin 2 GM/DEXTROSE 100 ML IV ONE (10:00)
[2018-07-05 11:44] VITALS: BP 133/75
--- NOTE | 2018-07-05 12:10 | SOAPPROG ---
SOAP Progress Note Assessment/Plan: Assessment: 72 yo female admitted w/ recurrent L nephrolithiasis (L ureteral 7x6mm calculus w/ L hydro) w/ recurrent procedures and stents over the past 2 months - was taken to OR this am w/ Dr Batista for L ureteroscopy w/ laser and l ureteral stent placement - -pain free currently, feeling good, successfully voided right now. -greatly appreciate Dr Batista's rapid assistance w/ this pt, awaiting to hear how procedures went, pt just back right now from PACU. -if ambulating fine, taking po's, recovering well and Dr Batista agrees will d/ c pt to home later today. -f/u in clinic in 1 week, has f/u w/ Dr Balderrama as well per urology recs. Plan: 07/05/18 12:06 Subjective: Doing well, pleased with having procedure done rapidly. Is pain free currently Objective: Vital Signs Temp Pulse Resp BP Pulse Ox 36.6 C 63 18 133/75 H 85 L 07/05/18 11:41 07/05/18 11:41 07/05/18 11:41 07/05/18 11:41 07/05/18 11:41 07/04/18 07/05/18 07/06/18 05:59 05:59 05:59 Intake Total 2264 750 Output Total 400 Balance 2264 350 Gen: a little sleepy from anesthesia, bright affect, oriented and appropriate Heent: neck soft supple Chest: CTA B CV: rrr Abd: soft nt nd - Pending Discharge Pending Discharge Within 24 Hours: Yes Pending Discharge Date: 07/06/18 Pending Discharge Time: 11:00 ICD10 Worksheet Patient Problems: Problems Problem Status Onset Kidney stone Acute Urinary tract infection Acute Ureterolithiasis Acute Hydronephrosis due to obstruction of ureter Acute
--- NOTE | 2018-07-05 13:12 | POSTOPPROG ---
Post Op Note Date of Operation: 07/05/18 Surgeon: Mateo Batista Pre-op Diagnosis: left ureteral stone Post-op Diagnosis: same Procedure: cystoscopy, left ureteroscopy laser stent Findings: left proximal ureteral stone Inf/Abcess present in the surg proc area at time of surgery?: No EBL: Minimal Specimen(s): left ureteral stone
--- NOTE | 2018-07-05 15:44 | POSTANESTH ---
Post Anesthetic Evaluation Cardiovascular Status: Normal, Stable Respiratory Status: Normal, Stable Level of Consciousness/Mental Status: Can Participate in Eval Pain Control: Adequate, Prn Tx Ordered Nausea/Vomiting Control: Adequate, Prn Tx Ordered Complications Possibly Related to Anesthesia: None Noted
--- NOTE | 2018-07-05 17:45 | ASMTLACE ---
LACE Length of stay for Answers: Less than 1 day current admission Acuity / Level of Answers: Yes Care: Did the patient have an inpatient admission? Comorbidities - select Answers: Coronary Artery Disease all that apply Other Notes: HTN, isomnia # of Emergency department Answers: 5-8 visits in the last 6 months Score: 10 Date Signed: 07/05/2018 05:45 PM Electronically Signed By:Tamera Maloney RN
--- NOTE | 2018-07-05 17:48 | ASDISCHSUM ---
Discharge Information Plan Status:Home with No Needs Medically Cleared to Leave:07/04/2018 Discharge Date:07/05/2018 03:45 PM CM D/C Disposition:Home, Routine, Self-Care ADT D/C Disposition:Home, Routine, Self-Care Projected Discharge Date:07/05/2018 03:45 PM Transportation at D/C:Family Discharge Delay Reason: Follow-Up Date:07/05/2018 03:45 PM Discharge Slot:2 - 12:01 pm - 18:00 pm Final Diagnosis:Left ureterolithiasis, moderate hypdronephrosis, s/p ureteroscopy and stent placemen t Placement Information Patient Contact Information Contact Name:ROSANGELA Relationship: Address: City: [facility] Phone: [facility]/[employer] Code: Email: Financial Information Financial Class:Medicare Advantage Plans Primary Plan Desc:[facility] Primary Plan Number:[id number] Secondary Plan Desc: Secondary Plan Number: Assessment Information [facility] CM Progress Note CM Note CM Note Notes: Reviewed chart. Pt admitted for left ureterolithiasis with moderate hydronephrosis. Pt is s/p a ureteroscopy and stent placement. 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 Pt is single and lives in [place]. No therapies ordered. Pt to discharge home independently with no identified needs. No IM/CLARKE form signed; admission <24 hrs. Pt to follow up as directed. CM available for any further issues or concerns. Discharge Plan: Home independently Date Signed: 07/05/2018 05:48 PM Electronically Signed By:Tamera Maloney RN LACE LACE Length of stay for Answers: Less than 1 day current admission Acuity / Level of Answers: Yes Care: Did the patient have an inpatient admission? Comorbidities - select Answers: Coronary Artery Disease all that apply Other Notes: HTN, isomnia # of Emergency department Answers: 5-8 visits in the last 6 months Score: 10 Date Signed: 07/05/2018 05:45 PM Electronically Signed By:Tamera Maloney RN Intervention Information
[2018-07-05] MEDS ORDERED: LOSARTAN POTASSIUM 50 MG TAB PO SCH (21:00)
[2018-07-05] MEDS ORDERED: amLODIPine BESYLATE 5 MG TAB PO SCH (21:00)
[2018-07-05] MEDS ORDERED: traZODone 50 MG TAB PO SCH (21:00)
[2018-07-05] MEDS ORDERED: TAMSULOSIN HCL 0.4 MG CAP PO SCH (21:00)
[2018-07-05] MEDS ORDERED: ATORVASTATIN CALCIUM 20 MG TAB PO SCH (21:00)
--- NOTE | 2018-07-06 00:39 | GOP ---
DATE OF OPERATION: 07/05/2018 SURGEON: Bev Batista MD CARDIAC NURSE PRACTITIONER: None. PREOPERATIVE DIAGNOSIS: Left proximal ureteral stone. POSTOPERATIVE DIAGNOSIS: Left proximal ureteral stone. PROCEDURE PERFORMED: Left ureteroscopy, laser lithotripsy, placement of stent. FINDINGS: SPECIMENS: Include left ureteral calculus. INDICATIONS: The patient is a 72-year-old lady, who has been followed by my partner, Dr. Balderrama, for left ureteral calculi. She came into the ER with left flank pain, was found to have a left proximal ureteral stone with obstruction due to this. She was admitted and I recommended operative intervent ion. Preoperatively, I had a lengthy discussion of risks, benefits and alternatives with her, and sh e did provide informed consent. DESCRIPTION OF PROCEDURE: After informed consent was obtained, she was taken to the operating room w here she was given general anesthesia. She was placed in the low lithotomy position with special att ention to padding all bony prominences. Her genitals were prepped and draped in sterile fashion. Cy stoscopy was performed. There were no significant mucosal abnormalities. An open-ended catheter was then inserted into the left ureter and a retrograde pyelogram was obtained by injecting 10 mL half-s trength contrast. A filling defect was seen at the proximal ureter, consistent with the stone. In a ddition, the renal pelvis was opacified. At this point, a guidewire was placed and followed by a 2nd guidewire. I was careful to make sure both guidewires coiled in the renal pelvis. I then placed a ureteral access sheath under fluoroscopic guidance. Flexible ureteroscopy was then performed. I enc ountered the stone in the proximal ureter. I used a 200 micron fiber to fragment the stone into mult iple small pieces. Several of these pieces were chased into the kidney, where they were fragmented i nto a millimeter or less size particles. Some of these were grasped and removed with a basket. At t his point, repeat ureteroscopy showed no significant residual stone burden that could be identified. Therefore, a 4.8 x 24 cm stent was placed in a standard fashion. The bladder was drained. She was reversed from anesthesia and sent to the recovery room in stable condition. There were no noted comp lications. /[id number]/MODL
--- NOTE | 2018-07-06 14:44 | GDS ---
The patient is a 72-year-old female with an extensive history of nephrolithiasis with numerous proced ures, stenting, and ureteroscopic procedures lately trying to remove calculi with her last procedure [address] Balderrama, who unfortunately presented again to the ER with pain in the left flank area. A CAT scan done in the ER showing a 6 x 7 mm stone in her left ureter with moderate hydronephr osis. She was treated with ketorolac and IV fluids, and Urology was consulted. Dr. Batista evaluate d the patient with plans of taking her to the OR in the morning, and on 07/05/2018, she was taken to the OR and had a left ureteroscopy, laser lithotripsy, and placement of a ureteral stent. There were no complications. Patient tolerated it well and Dr. Batista felt that the stone was broken up succe ssfully and stent placed well. She was pain-free afterwards, able to ambulate and void without probl ems. After several hours of monitoring, she was then discharged home. She will call if there are an y questions or concerns. She had followup already planned with Urology, Dr. Balderrama, in 2 weeks, and she will follow up with her PCP, Dr. Asia Doll, in 1 week. She will be discharged on her usual med ications including amlodipine 5 mg p.o. q.h.s., Mobic 15 mg p.o. q.h.s., Cozaar 100 mg p.o. q.h.s., D ilaudid p.r.n. for recurrent kidney stones if an issue, atorvastatin 20 mg p.o. q.h.s., Flomax 0.4 p. o. q.h.s., Ditropan 10 mg p.o. q.h.s., and trazodone 50 mg p.o. q.h.s. p.r.n. /[id number]/MODL
== END 2018-07-05 15:45 | disposition home or self-care (01) ==
LOC: INTOOBSV 20:43 → F1N 21:26
PROVIDERS: ADMIT Internal Medicine; ATTEND Internal Medicine
PROC: 0T778DZ Dilation of Left Ureter with Intraluminal Device, Via Natural or Artificial Opening Endoscopic (ICD-10-PCS; principal; 2018-07-05 10:00)
PROC: 0TF78ZZ Fragmentation in Left Ureter, Via Natural or Artificial Opening Endoscopic (ICD-10-PCS; principal; 2018-07-05 10:00)
PROC: 0TC78ZZ Extirpation of Matter from Left Ureter, Via Natural or Artificial Opening Endoscopic (ICD-10-PCS; principal; 2018-07-05 10:00)
PROC: BT17YZZ Fluoroscopy of Left Ureter using Other Contrast (ICD-10-PCS; principal; 2018-07-05 10:00)
DX: N13.2 Hydronephrosis with renal and ureteral calculous obstruction (principal); E78.5 Hyperlipidemia, unspecified; I10 Essential (primary) hypertension; G47.00 Insomnia, unspecified; M85.89 Other specified disorders of bone density and structure, multiple sites; Z87.442 Personal history of urinary calculi; Z87.440 Personal history of urinary (tract) infections; Z85.3 Personal history of malignant neoplasm of breast; Z87.891 Personal history of nicotine dependence; Z96.643 Presence of artificial hip joint, bilateral; Z98.1 Arthrodesis status
CPT/HCPCS: 52356; 74018; 74176; 76001; C1758; C1769; C1894; C2625; G0378; J0690; J1885; J2704; J3010; Q9967; 82365-90; 96374

== ENCOUNTER → 2018-09-04 | Outpatient (CLI) | payer OTHER | LOC: FIMAGING 12:54 | PROVIDERS: ATTEND Specialist | DX: N13.2 Hydronephrosis with renal and ureteral calculous obstruction (principal) ==